=== PATIENT | female | born 1970 | race Caucasian/White ===

== ENCOUNTER → 2018-05-15 13:37 | Outpatient (CLI) | payer BC, SELFPAY ==
[2018-05-19 09:16] LABS: HPV Reflexed? NOT INDICATED
== END ==
PROVIDERS: Family Provider Internal Medicine; PCP Internal Medicine; Referring Provider Obstetrics & Gynecology; Visit Provider Obstetrics & Gynecology
DX: Z12.4 Encounter for screening for malignant neoplasm of cervix (principal)
CPT/HCPCS: 87624; 88175; G0145

== ENCOUNTER → 2019-06-23 10:35 | Outpatient (CLI) | payer OTHER, SELFPAY ==
--- NOTE | 2019-06-23 10:49 | BI_ITS ---
MAMMOGRAPHY - BILATERAL SCREENING REASON FOR EXAM: Female, 48 years old. Routine annual screening examination. PERTINENT HISTORY: Non-contributory. TECHNIQUE: Digital bilateral breast svetlana (3D mammographic acquisition) in the CC and MLO projections. 2-D mediolateral oblique (MLO) and craniocaudad (CC) views of both breasts were obtained. CAD: Full Field Digital Mammography with Computer Added Detection was performed. COMPARISON: None. Baseline examination. FINDINGS: Breast Composition: The breasts are heterogeneously dense, which may obscure small masses. There are no dominant masses or suspicious calcifications. Small benign appearing bilateral axillary nodes. No other significant abnormalities are identified. BI/SCREEN MAMM (CAD) W/SVETLANA BILAT IMPRESSION: Negative screening mammogram. Yearly followup mammogram recommended. (A) ASSESSMENT CATEGORY: BIRADS Category 2: Benign. A letter regarding these results will be sent to the patient by the facility within 30 days. Approximately 10% of breast cancers are not detected by mammography. A normal mammogram should not delay biopsy of a clinically suspicious abnormality. [id number] Electronically Signed: Efra Linares, at 12:06 EST , Service support ,
== END ==
PROVIDERS: Family Provider Internal Medicine; PCP Internal Medicine; Referring Provider Obstetrics & Gynecology; Visit Provider Obstetrics & Gynecology
DX: Z12.31 Encounter for screening mammogram for malignant neoplasm of breast (principal)
CPT/HCPCS: 77063; 77067

== ENCOUNTER → 2020-07-02 13:33 | Outpatient (CLI) | payer OTHER, SELFPAY ==
--- NOTE | 2020-07-02 13:35 | BI_ITS ---
MAMMOGRAPHY - BILATERAL SCREENING REASON FOR EXAM: Female, 49 years old. Routine annual screening examination. PERTINENT HISTORY: Non-contributory. TECHNIQUE: Digital bilateral breast svetlana (3D mammographic acquisition) in the CC and MLO projections. 2-D mediolateral oblique (MLO) and craniocaudad (CC) views of both breasts were obtained. CAD: Full Field Digital Mammography with Computer Added Detection was performed. COMPARISON: Comparison is made with prior study dated 06/23/2019. FINDINGS: Breast Composition: The breasts are heterogeneously dense, which may obscure small masses. There are no dominant masses or suspicious calcifications. Stable benign-appearing bilateral axillary lymph nodes. No other significant abnormalities are identified. There has been no significant change since the prior study. BI/SCRN MAMM (CAD)W/SVETLANA BILAT IMPRESSION: Stable bilateral screening mammogram. Yearly follow-up mammogram recommended. (A) ASSESSMENT CATEGORY: BIRADS Category 2: Benign. A letter regarding these results will be sent to the patient by the facility within 30 days. Approximately 10% of breast cancers are not detected by mammography. A normal mammogram should not delay biopsy of a clinically suspicious abnormality. [id number] Electronically Signed: Efra Linares MD at 14:19 EST , Service support ,
== END ==
PROVIDERS: PCP Internal Medicine; Referring Provider Obstetrics & Gynecology; Visit Provider Obstetrics & Gynecology
DX: Z12.31 Encounter for screening mammogram for malignant neoplasm of breast (principal)
CPT/HCPCS: 77063; 77067

== ENCOUNTER 2020-08-24 09:07 | Observation (INO) | payer OTHER, SELFPAY ==
[2020-08-24] VITALS (13 sets, daily range): BP systolic 124–145; BP diastolic 67–87; PULSE 70–82; RESP 12–16; TEMP 36.3–36.6; O2SAT 97–100; BMI 25.1; BMI 25.4; BMI 25.5
--- NOTE | 2020-08-24 09:17 | CT_ITS ---
STUDY: CTA HEAD AND NECK WITH CONTRAST REASON FOR EXAM: Female, 49 years old. Neuro deficit, acute, stroke suspected RADIATION DOSAGE (If Supplied By Facility): CTDIvol = ( 16.93 ) mGy, DLP = ( 616.57 ) mGycm TECHNIQUE: CT angiography was performed with a multi-detector CT scanner. Data acquisition was obtained from the skull base through the vertex following intravenous administration of IV 100mL Isovue-370. MIP images were reconstructed from the axial data set. Post-processing of the angiographic images was performed, with multiplanar reformation and 3D reconstruction. Individualized dose optimization techniques were used for this CT. COMPARISON: No relevant priors. FINDINGS: Normal bilateral petrous carotid arteries. Normal right cavernous carotid artery with a normal supraclinoid bifurcation. Normal left cavernous carotid artery with a normal supraclinoid bifurcation. Normal right A1 segments of the anterior cerebral artery. Normal left A1 segments of the anterior cerebral artery. Normal intact anterior communicating artery (ACOM). Normal bilateral A2 segments of the anterior cerebral arteries. Normal right M1 and M2 segments of the middle cerebral arteries, with a normal M1 bifurcation. Normal left M1 and M2 segments of the middle cerebral arteries, with a normal M1 bifurcation. Normal right posterior communicating artery (PCOM). Normal left posterior communicating artery (PCOM). Normal bilateral vertebral arteries. Normal basilar artery with a normal basilar bifurcation. The visualized bilateral superior cerebellar (SCA) arteries are normal. Normal bilateral P1, P2 and visualized P3 segments of the posterior cerebral arteries. There is no demonstrated aneurysm of the nikolski of Rodriguez. There is no demonstrated abnormality of the visualized brain. AORTIC ARCH: There is a bovine origin of the great vessels arising from the aortic arch with a common origin of the brachiocephalic and left common carotid artery. Normal origin of the left subclavian artery. RIGHT CAROTID ARTERIES: Normal right common carotid artery (CCA). Normal right common carotid bulb. Normal origin of the right internal carotid (ICA) artery without a hemodynamically significant stenosis. Normal visualized cervical portion of the right internal carotid artery. Normal origin of the right external carotid artery (ECA). LEFT CAROTID ARTERIES: Normal left common carotid artery (CCA). Normal left common carotid bulb. Normal origin of the left internal carotid (ICA) artery without a hemodynamically significant stenosis. Normal visualized cervical portion of the left internal carotid artery. Normal origin of the left external carotid artery (ECA). VERTEBRAL ARTERIES: Normal bilateral vertebral arteries. CT/STROKE CTA Head AND Neck W/Con IMPRESSION: Normal CTA Head and neck with contrast. N.B. : The above information has been verbally conveyed by Efra Linares MD to Azael Pratt on 08/24/2020 09:42:30 (ET). Electronically Signed: Efra Linares MD at 9:43 EDT , Service support ,
--- NOTE | 2020-08-24 09:17 | CT_ITS ---
STUDY: CT HEAD STROKE PROTOCOL W/O CONTRAST INJECTION REASON FOR EXAM: Female, 49 years old. Neuro deficit, acute, stroke suspected RADIATION DOSAGE (If Supplied By Facility): CTDIvol = ( 44.99 ) mGy, DLP = ( 748.3 ) mGycm TECHNIQUE: Transaxial CT imaging of the brain was performed without administration of intravenous contrast material. Individualized dose optimization techniques were used for this CT. COMPARISON: No relevant priors. FINDINGS: Normal soft tissue structures. Normal calvarium. Normal size ventricles and extra-axial spaces for the patient''s age. Normal white matter tracts of the cerebral hemispheres. Normal basal ganglia and thalami. Normal brainstem. Normal cerebellum. There is no intracranial hemorrhage. There are no findings of an acute ischemic infarction. Normal visualized paranasal sinuses. CT/STROKE Brain/Head without Cont IMPRESSION: Normal unenhanced CT scan of the brain. N.B. : The above information has been verbally conveyed by Efra Linares MD to Dr Terence MD, on 08/24/2020 09:34:47 (ET). Electronically Signed: Efra Linares MD at 9:35 EDT , Service support ,
--- NOTE | 2020-08-24 09:17 | EKG12_ITS ---
Test Reason : STROKE Blood Pressure : / mmHG Vent. Rate : 072 BPM Atrial Rate : 072 BPM P-R Int : 148 ms QRS Dur : 090 ms QT Int : 394 ms P-R-T Axes : 035 041 032 degrees QTc Int : 431 ms Normal sinus rhythm Normal ECG Confirmed by FABIOLA CONDE, RAFAL ([id number]), editor city KIERRA BACON ([id number]) on 08/26/2020 12:53:27 PM Referred By: Confirmed By:RAFAL HICKS MD
--- NOTE | 2020-08-24 09:17 | RAD_ITS ---
STUDY: X-RAY CHEST REASON FOR EXAM: Female, 49 years old. Neuro deficit, acute, stroke suspected TECHNIQUE: Single AP portable view of the chest. COMPARISON: None. FINDINGS: EKG electrodes are seen. The lungs are clear and expanded. There is no demonstrated pleural abnormality. Normal size heart. Normal mediastinum and norma. Normal visualized pulmonary arteries. Normal visualized aortic arch and descending thoracic aorta. Normal visualized thoracic spine. Normal visualized ribs, clavicles, and shoulders. There is no demonstrated abnormality of the visualized soft tissue structures of the upper abdomen. RAD/Chest 1 View IMPRESSION: Normal x-ray examination of the chest. Electronically Signed: Efra Linares MD at 10:19 EDT , Service support ,
--- NOTE | 2020-08-24 09:19 | ED.VIS.STROK ---
History of Present Illness Chief Complaint: Weakness Informant: Patient, Significant Other Onset: Yesterday Timing: Intermittent - Initially intermittent now continuous, Waxes and wanes Quality and Location: Right Leg Parasthesia, Right Arm Weakness, Right Leg Weakness Onset: Episode at 1300. Resolved recurred 1500. Resolved and reoccurred at 1700 Current Severity: Mild Maximum Severity: Moderate Worsened by: Nothing Relieved by: Nothing Associated Symptoms: Negative for: Headache, Nausea, Vomiting, Chest Pain Narrative: Patient is a 49-year-old woman who is a smoker of 1 pack/day. She states she is borderline diabetic. She does have elevated blood pressure apparently on no medicine. She had stuttering symptoms yesterday. She believes it became constant between 5 and 7 PM. She states she is having trouble combing her hair/putting her hair up. She is having trouble with her right leg. thinks she had problems with speech yesterday. He also states she was slow. Prior similar symptoms: No Recent Illness/Hospitalization: No - Past Medical History (1) High blood pressure Status: Chronic (2) History of prediabetes Status: Acute Past Medical History - Allergies and Home Meds Allergies/Adverse Reactions: Allergies Penicillins [PCN] Allergy (Verified 08/24/20 09:08) Hives Primary Care Physician: Cyndi Salcedo DO [Primary Care Provider] - Prior records reviewed: No Surgical History: noncontributory Lives: Spouse/ Significant Other Smoking Status: Heavy Smoker (>10/day) Alcohol: Rare Drugs: None Review of Systems General: Denies: Chills, Fever, Malaise, Subjective Eyes: Denies: Visual changes - bilaterally, Blurred Vision - bilaterally ENT: Denies: Rhinorrhea, Sore throat Cardiovascular: Denies: Chest pain, Palpitations Respiratory: Denies: Dyspnea, Cough, Dyspnea on exertion Gastrointestinal: Denies: Abdominal pain, Nausea, Vomiting, Diarrhea, Melena, Hematochezia Genitourinary: Denies: Dysuria, Hematuria, Frequency Musculoskeletal: Denies: Myalgias, Arthralgias, Neck pain, Back pain, Swelling, Extremity Pain, -, - Skin: Denies: Rash, Wounds Neurological: Reports: Weakness. Denies: Headache Psych: Denies: Depression, Anxiety Endocrine: Denies: Polyuria, Polydipsia STROKE Vital Signs/Narrative: Vital Signs Temp Pulse Resp BP Pulse Ox 08/24/20 09:08 98 F 82 16 130/82 H 100 Inital Vital Signs reviewed: Yes - NIHSS Initial 1a Level of Consciousness: 0 1b LOC Questions (Score 2 if aphasic/stupor): 0 1c LOC Commands (Only score 1st attempt): 0 2 Best Gaze (If aphasic, use reflexive mvmts.): 0 4 Facial Palsy: 0 5 Motor Arm Right (UN = amputation/fusion): 0 5 Motor Arm Left: 0 6 Motor Leg Right: 1 6 Motor Leg Left: 0 7 Limb ataxia (Only + if out of proportion): 0 8 Sensory (Aphasia/stupor=0 or 1, coma=2): 0 9 Best Language: 0 10 Dysarthria (mute, coma=2, intubated=UN): 0 11 Extinction and Inattention (only scored if +): 0 Total Score: 1 General: Well nourished, Well developed Head: Normocephalic, Atraumatic Eyes: Perrl, EOMI ENT: Moist mucous membranes, No rhinorrhea Neck: Supple, Nontender Cardiovascular: Regular rate, Regular rhythm, No murmurs Respiratory: No distress, CTA bilaterally, Chest nontender Abdomen: Soft, Nontender, Nondistended, Normal bowel sounds Back: Nontender, Normal Inspection Extremities: Nontender, No edema Skin: Normal color, No rash Neurological: Alert, Oriented x3, Cranial nerves II-XII grossly intact, Normal Sensation, Normal DTR. Negative for: Normal Strength, Normal Gait Psychological: Normal affect Diagnostic/Tx/Re-eval I received a call from the radiologist at 0934. I was informed the CAT scan is normal. Impressions Brain CT 08/24/20 09:17 IMPRESSION: Normal unenhanced CT scan of the brain. N.B. : The above information has been verbally conveyed by Efra Linares MD to Dr Terence MD, on 08/24/2020 09:34:47 (ET). Electronically Signed: Efra Linares MD at 9:35 EDT , Service support , ADDENDUM: 08/24/20 0942 IMPRESSION: Normal unenhanced CT scan of the brain. N.B. : The above information has been verbally conveyed by Efra Linares MD to Dr Terence MD, on 08/24/2020 09:34:47 (ET). Electronically Signed: Efra Linares MD at 9:35 EDT , Service support , Head/Neck CTA 08/24/20 09:17 IMPRESSION: Normal CTA Head and neck with contrast. N.B. : The above information has been verbally conveyed by Efra Linares MD to Azael Pratt on 08/24/2020 09:42:30 (ET). Electronically Signed: Efra Linares MD at 9:43 EDT , Service support , ADDENDUM: 08/24/20 0950 IMPRESSION: Normal CTA Head and neck with contrast. N.B. : The above information has been verbally conveyed by Efra Linares MD to Azael Pratt on 08/24/2020 09:42:30 (ET). Electronically Signed: Efra Linares MD at 9:43 EDT , Service support , 08/24/20 09:17 Chest 1 View [RAD] Stat STROKE Brain/Head without Cont [CT] Stat STROKE CTA Head AND Neck W/Con [CT] Stat Laboratory Results 08/24/20 08/24/20 08/24/20 09:32 09:35 09:35 WBC 8.0 RBC 3.87 L Hgb 13.3 Hct 40.1 MCV 103.6 H MCH 34.4 H MCHC 33.2 RDW Std Deviation 49.5 H RDW Coeff of Alana 13.0 Plt Count 275 MPV 9.7 Immature Gran % (Auto) 0.400 Neut % (Auto) 71.5 H Lymph % (Auto) 17.8 L Benson % (Auto) 8.5 Eos % (Auto) 0.9 Baso % (Auto) 0.9 Absolute Neuts (auto) 5.7 Absolute Lymphs (auto) 1.42 Nucleated RBC % 0 PT 14.9 INR 1.2 APTT 27.8 POC Glucose 128 H - Medical Decision Making Stroke Team Activated: Yes Reviewed Inclusion/Exclusion criteria: Yes IV Alteplase (t-PA) Administered: No - outside the 4 and half hour window No contraindications for IV Alteplase (t-PA) administration.: No - Outside window Alteplase (t-PA) risks, benefits, alternative discussed: No With stuttering symptoms that is now constant. Patient does have neurologic deficit on the right side. Stroke team was called. CT of the head without contrast and CTA of the head and neck was ordered. Spoke with the neurologist at [facility]. He recommended completing stroke work-up at [facility]. He recommended MRI and CT of the cervical spine because of symptoms being in the right lower extremity more so than upper. He states his score was a 0. Patient states she feels back to normal at this time. Concern is she had a TIA versus small stroke or possibly cervical neck/cord issue. The hospitalist was paged. Critical care time (excluding procedures): Including time spent: - Total time 18 minutes which included performing history, physical exam, discussion with neurologist at [facility], radiologist and hospitalist for admission ED Disposition - Plan for ED Patient: Disposition: Acute Care Hospital [facility] Diagnosis: Acute right-sided muscle weakness Referrals: Cyndi Salcedo DO [Primary Care Provider] -
[2020-08-24 09:43] LABS: Absolute Lymphocyte Count 1.42 X10^3/uL (0.83-4.51); Absolute Neutrophil Count 5.7 X10^3/uL (2.0-7.7); Basophil# 0.07 X10^3/uL; Basophil% 0.9 % (0-1); Eosinophil# 0.07 X10^3/uL; Eosinophils% 0.9 % (0-5); Hematocrit 40.1 % (37-47); Hemoglobin 13.3 g/dL (12.0-15.0); Lymphocyte # 1.42 X10^3/ul (4.0); Lymphocyte % 17.8 % (19-41); Mean Corp Hgb Conc 33.2 g/dL (32-36); Mean Corpuscular Hgb 34.4 pg (27.0-32.0); Mean Corpuscular Volume 103.6 fL (81-99); Mean Platelet Vol. 9.7 fl (6.2-12.0); Monocyte# 0.68 X10^3/uL; Monocyte% 8.5 % (0-10); NRBC Flagged by Analyzer 0 % (0-5); Neutrophil % 71.5 % (47-70); Platelet Count 275 K/mm3 (150-450); RBC Distribution Width SD 49.5 fl (35.1-43.9); Red Blood Count 3.87 M/mm3 (4.2-5.4)
[2020-08-24 09:54] LABS: International Normalized Ratio 1.2; Prothrombin Time (Protime)PT. 14.9 SECONDS (11.7-14.9)
[2020-08-24 09:55] LABS: Partial Thromboplast Time 27.8 Seconds (24.1-36.2)
[2020-08-24 09:56] LABS: Bedside Glucose 128 mg/dL (70-110)
[2020-08-24 10:00] LABS: Anion Gap 3 (5-15); BUN 8 mg/dL (7-18); BUN/Creat Ratio 15.3 RATIO (10-20); Calcium,Total 8.1 mg/dL (8.5-10.1); Chloride 104 mmol/L (98-107); Creatinine, Serum 0.52 mg/dL (0.55-1.02); EST Glomerular Filtration Rate 133 mL/min (>60); Est Glom Filt Rate - Afr Amer 161 mL/min (>60); Estimated Creatinine Clearance 110.64 ml/min; Glucose 117 mg/dL (74-106); Potassium 3.6 mmol/L (3.5-5.1); Sodium Level 134 mmol/L (136-145)
--- NOTE | 2020-08-24 11:11 | HP.PCM_ITS ---
Problem List (1) Weakness of right lower extremity Status: Acute (2) History of prediabetes Status: Chronic History of Present Illness Date of Admission: 08/24/20 Chief Complaint: Right lower extremity weakness. The patient is a 49 year old F with no significant past medical history apart from prediabetes presented to the emergency room because of right lower extremity weakness. Her symptoms started yesterday afternoon, started having weakness of the right lower extremity, was not able to walk normally and she has been dragging her right leg. For me, she denied any right upper extremity weakness or paresthesia. She denied any recent fall or mechanical trauma. She mentioned that she did have history of back pain and she had epidural injections years ago. Currently, she denies any low back pain. She denied numbness or tingling of her legs or arms. She denied blurred vision or slurred speech. In the emergency department, her vital signs were stable. Her NIH stroke scale was 1. [facility] teleneurology consulted and recommended MRI brain, not candidate for TPA. Routine blood work was unremarkable. EKG revealed normal sinus rhythm, normal CT interval, normal QRS, normal QTC, no acute ischemic changes. Troponin was negative. Chest x-ray showed no acute findings. CT brain showed no acute infarct or hemorrhage. CTA of the head and neck revealed no evidence of hemodynamically significant vascular disease or stenosis. She is being admitted for right lower extremity weakness for evaluation. 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 Dyspnea, Syncope Respiratory: Denies: Cough, Pleuritic Pain, Shortness of Breath, Sputum production, Wheezing Gastrointestinal: Denies: Abdominal Pain, Constipation, Diarrhea, Nausea, Vomiting Genitourinary: Denies: Dysuria, Frequency, Hematuria Musculoskeletal: Denies: Arm Pain, Back Pain, Foot Pain, Leg Pain Skin: Denies: Dryness, Rash Neurological: Reports: Focal weakness. Denies: Balance problems, Double vision, Change in Speech, Slurred speech, Confusion, Headaches, Numbness, Tingling Psychiatric: Denies: Anxiety, Depression Endocrine: Denies: Change in Body Habitus, Polydipsia, Polyuria VTE Information - Inpt Only VTE Present on Admission: No VTE Mechan Device Prophylaxis: None VTE Pharm Prophylaxis ordered?: No - Physical Exam Vitals/I&O's: Vital Signs Temp Pulse Resp BP Pulse Ox 97.7 F L 70 14 145/84 H 100 08/24/20 10:54 08/24/20 10:54 08/24/20 10:54 08/24/20 10:54 08/24/20 10:56 Oxygen Delivery Method Room Air Weight: 143 lb 11.862 oz Body Mass Index (BMI) 25.4 Finger Stick Blood Glucose 128 General: Alert, Oriented x3, Cooperative, No apparent distress HEENT: Atraumatic, PERRLA, EOMI, Normocephalic Oral: Moist Mucosa, No Gingival or Mucosal Lesions/ Ulcerations Neck: Supple, No JVD, Negative Carotid Bruits, Trachea Midline, Thyroid Normal Size and Texture Lungs: Clear to auscultation, Normal air movement, No rhonchi, No wheeze, No rales Cardiovascular: Regular rate, Regular Rhythm, Normal S1, Normal S2 Abdomen: Bowel Sounds Present, Soft, Non Tender, Non-Distended, No Hepato-splenomegaly Extremities: No clubbing, No cyanosis, No edema Skin: No rashes, No breakdown Lymphatic: No Cervical, Supraclavicular, or Inguinal Adenopathy Neurological: Cranial nerves II-XII grossly intact, Motor Exam 5/5 strength throughout, - - No arm drift. No obvious leg drift for 5 seconds. Psych/Mental Status: Normal Affect, Appropriate, Alert and oriented to time, place, person, mood and affect Laboratory Results 08/24/20 09:32: POC Glucose 128 H 08/24/20 09:35: WBC 8.0, RBC 3.87 L, Hgb 13.3, Hct 40.1, MCV 103.6 H, MCH 34.4 H , MCHC 33.2, RDW Std Deviation 49.5 H, RDW Coeff of Alana 13.0, Plt Count 275, MPV 9.7, Immature Gran % (Auto) 0.400, Neut % (Auto) 71.5 H, Lymph % (Auto) 17.8 L, Trego % (Auto) 8.5, Eos % (Auto) 0.9, Baso % (Auto) 0.9, Absolute Neuts (auto) 5.7, Absolute Lymphs (auto) 1.42, Nucleated RBC % 0 08/24/20 09:35: PT 14.9, INR 1.2, APTT 27.8 08/24/20 09:35: Sodium 134 L, Potassium 3.6, Chloride 104, Carbon Dioxide 27.0, Anion Gap 3 L, BUN 8, Creatinine 0.52 L, Estim Creat Clear Calc 110.64, Est GFR (MDRD) Af Amer 161, Est GFR (MDRD) Non-Af 133, BUN/Creatinine Ratio 15.3, Glucose 117 H, Calcium 8.1 L, Troponin I < 0.015 Clinical Impression(s) from Imaging Studies Brain CT 08/24/20 09:17 IMPRESSION: Normal unenhanced CT scan of the brain. N.B. : The above information has been verbally conveyed by Efra Linares MD to Dr Terence MD, on 08/24/2020 09:34:47 (ET). Electronically Signed: Efra Linares MD at 9:35 EDT , Service support , ADDENDUM: 08/24/2042 IMPRESSION: Normal unenhanced CT scan of the brain. N.B. : The above information has been verbally conveyed by Efra Linares MD to Dr Terence MD, on 08/24/2020 09:34:47 (ET). Electronically Signed: Efra Linares MD at 9:35 EDT , Service support , Chest X-Ray 08/24/20 09:17 IMPRESSION: Normal x-ray examination of the chest. Electronically Signed: Efra Linares MD at 10:19 EDT , Service support , Head/Neck CTA 08/24/20 09:17 IMPRESSION: Normal CTA Head and neck with contrast. N.B. : The above information has been verbally conveyed by Efra Linares MD to [facility] on 08/24/2020 09:42:30 (ET). Electronically Signed: Efra Linares MD at 9:43 EDT , Service support , ADDENDUM: 08/24/20 0950 IMPRESSION: Normal CTA Head and neck with contrast. N.B. : The above information has been verbally conveyed by Efra Linares MD to [facility] on 08/24/2020 09:42:30 (ET). Electronically Signed: Efra Linares MD at 9:43 EDT , Service support , Current Medications Sodium Chloride () 250 mls @ 15 mls/hr IV .[id number] PRN PRN Reason: Saline Flush Sodium Chloride () 250 mls @ 15 mls/hr IV .[id number] PRN PRN Reason: Additional IVPB Infusion Labetalol HCl (Labetalol (Prefilled) 20 Mg/4 Ml) 20 mg IV X1 PRN PRN Reason: BLOOD PRESSURE Sodium Chloride (0.9% Saline Lock 10 Ml Syringe) 10 - 40 ml IV UD PRN PRN Reason: SALINE FLUSH Assessment/Plan All Active Problems Weakness of right lower extremity (Acute) This is a 49 years old female patient presented to the emergency room because of right lower extremity weakness and she is being admitted for evaluation. #1 right lower extremity weakness: Unclear etiology, could be muscle weakness. Patient mentioned to the ED physician that she has right arm weakness as well. To me, she denied any right arm weakness or back pain. Her power is 5 x 5 of all limbs, no leg drift on both sides. CT scan brain showed no acute findings. CTA of the head and neck was unremarkable. EKG was normal. Vital signs were stable. Routine blood work was unremarkable. Plan: Admit to PCU for observation, cardiac monitoring, NIH stroke scale, start aspirin and statins, MRI brain, MRI lumbar spine, gentle IV fluids for hydration, Tylenol as needed, Zofran as needed, PT OT evaluation and treatment. #2 prediabetes: Blood sugar stable. She is not on any treatment. Plan to monitor. #3 tobacco abuse: Nicotine patch if desired. #4 DVT prophylaxis: Low risk patient, no prophylaxis indicated, ambulate. This note was generated with [employer]Other[employer] dictation software. It may contain incorrect words, spelling, and punctuation that were not noted in checking the note before signing. OBSV E&M: [id number] Initial observation care L2
--- NOTE | 2020-08-24 11:26 | MRI_ITS ---
STUDY: MRI BRAIN WITHOUT CONTRAST REASON FOR EXAM: Female, 49 years old. Right lower extremity weakness TECHNIQUE: Standardized multiplanar fat and water weighted pulse sequences were obtained. COMPARISON: CT FINDINGS: Normal size of the ventricles and extra-axial spaces for the patient''s age. Normal white matter tracts of the supratentorial brain. There is no evidence for recent intracranial ischemia or other cause of cytotoxic edema on diffusion weighted imaging (DWI). Normal T2* images of the brain without demonstrated susceptibility artifact. There is no demonstrated hemosiderin stain. Normal bilateral basal ganglia. Normal thalami. There is no extra-axial fluid accumulation. Normal flow voids within the major intracranial circulation suggesting patency by spin echo criteria. Normal sella turcica, pituitary gland, infundibular stalk, optic chiasm and hypothalamus. Normal tectal plate and pineal gland. Normal midbrain, flex and medulla. Normal cerebellum. Normal basal cisterns. Normal bilateral temporal bones. Normal bilateral internal auditory canals. No demonstrated orbital abnormality, within the constraints of a routine brain study. Normal visualized paranasal sinuses. Normal calvarium and skull base. Normal visualized soft tissue structures. Normal visualized upper cervical spine. MRI/Brain without Contrast IMPRESSION: Normal unenhanced MRI of the brain. Electronically Signed: Francisco Javier Ortiz MD at 21:58 EDT , Service support ,
--- NOTE | 2020-08-24 11:26 | MRI_ITS ---
STUDY: MRI LUMBAR SPINE WITHOUT CONTRAST REASON FOR EXAM: Female, 49 years old. Right lower extremity weakness TECHNIQUE: Standardized fat and water weighted pulse sequences were obtained in the sagittal and axial planes. COMPARISON: None FINDINGS: T12-L1: Left paracentral disc protrusion, series 5 image 28/30. Mild facet spurring but no canal stenosis. Neural foramina are patent. Normal lumbar lordosis. There is a dextroscoliosis of the lumbar spine. Normal conus medullaris that terminates at the T12 level. L1-2: Normal endplates. Normal disc height, hydration and morphology. Mild spurring of the bilateral facet joints. Normal central canal and bilateral lateral recesses. Normal bilateral intervertebral neural foramina. L2-3: Normal endplates. Normal disc height, hydration and morphology. Mild spurring of the bilateral facet joints. Normal central canal and bilateral lateral recesses. Normal bilateral intervertebral neural foramina. L3-4: Disc bulge. Mild spurring of the bilateral facet joints. Normal central canal and bilateral lateral recesses. Normal bilateral intervertebral neural foramina. L4-5: Disc bulge. Mild spurring of the bilateral facet joints. Normal central canal and bilateral lateral recesses. Normal bilateral intervertebral neural foramina. L5-S1: Disc bulge with central disc protrusion, series 5 image 3/30. Facet spurring. No canal stenosis. Neural foramina patent. Normal visualized sacral ala. Normal visualized paraspinous soft tissue structures. There is diminished T2 signal mass of the uterus consistent with fibroid. 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 Electronically Signed: Francisco Javier Ortiz MD at 22:06 EDT , Service support ,
[2020-08-24] MEDS: 0.9% Normal Saline 1,000 ML 75 ML IV (11:45)
[2020-08-24 12:37] LABS: CPK Total, Creatine Kinase 24 U/L (26-192)
--- NOTE | 2020-08-24 15:20 | CASEMGMT ---
Therapy told SW that patient would be a great Inpatient Rehab candidate. SW met with patient, introduced self and role at [facility]. SW spoke with her about Acute Rehab Units. SW offered to give her a list of options, but she declined as she would only want to be in [place]. SW answered her questions. She is going to talk with her about it. SW told her SW can check back in with her tomorrow. SW did leave a pamphlet with her. Raissa GRAVES MSW
[2020-08-24] MEDS: Atorvastatin Calcium 40 MG Tablet PO (20:35)
[2020-08-24] MEDS: Zolpidem Tartrate 5 MG Tablet PO (20:35)
[2020-08-25 00:30] VITALS: BP 133/80; PULSE 74; RESP 18; TEMP 36.4; O2SAT 97
[2020-08-25 03:01] VITALS: PULSE 71
[2020-08-25 04:30] VITALS: BP 119/77; PULSE 75; RESP 18; TEMP 36.8; O2SAT 98
[2020-08-25 07:00] VITALS: PULSE 87
[2020-08-25 07:31] VITALS: O2SAT 97
--- NOTE | 2020-08-25 08:16 | DCINST_ITS ---
- Discharge Diagnoses Current Active Problems: Current Active and Chronic Problems Weakness of right lower extremity (Acute) History of prediabetes (Chronic) You will use the following diet at home:: Regular Your food should be the consistency of: Regular Discharge Activity: Return to Normal Activity Weight Bearing Status: Weight bearing as tolerated Call your doctor if you observe: Fever of 101 or Higher, Shortness of breath, Dizziness, Fainting spells, Chest pain, Increased palpitations (irregular heartbeat), Uncontrolled pain Allergies/Adverse Reactions: Allergies Penicillins [PCN] Allergy (Verified 08/24/20 09:08) Hives Medications to take at Discharge NK 08/24/20 Primary Care Physician: Cyndi Salcedo DO [Primary Care Provider] - Please follow up with your Primary Care Physician in: 1 week. Test Results: Test results from this visit will be discussed in further detail at your follow- up appointment, if applicable. Please Follow Up With: Dov Brown MD When: 2-3 weeks if no improvment.
[2020-08-25 08:47] VITALS: BP 119/77; PULSE 75; RESP 18; TEMP 36.8; O2SAT 98
--- NOTE | 2020-08-25 09:41 | PHA.DC.MR ---
Pharmacy Service has performed discharge medication reconciliation for this patient. The patient's discharge medication list was reviewed for discrepancies and discrepancies were resolved. Home Medications NK 08/24/20
--- NOTE | 2020-08-25 10:10 | CASEMGMT ---
SW did not complete a PHQ 9 with patient as per physician she did not have a Stroke or TIA. Raissa GRAVES MSW
--- NOTE | 2020-08-25 10:10 | CASEMGMT ---
Patient did much better with therapy today and her plan is now to go home. Raissa GRAVES MSW
--- NOTE | 2020-08-25 10:14 | CASEMGMT ---
Per therapy, pt would benefit from HHC or OP therapy at discharge. Per pt, she is not homebound and would like set up with [facility] OP therapy as she has been there before. Pt would also like a WW and after provided verbal list of local in-network DME companies, pt states no preference and [place] [facility] [place] 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 [place]. Pt provided copies of [facility] script and OP therapy script at this time. Pt voices no further questions/concerns/needs. Nehemias CAVAZOS updated on all, voices understanding. Pt awaiting transport to car. Sherita CAVAZOS CM
--- NOTE | 2020-08-25 10:37 | PCM.DC.SUM ---
Discharge Date and Diagnosis - Problem List Patient Problems: Active and Suspected Problems Weakness of right lower extremity (Acute) Date of Admission: 08/24/20 Date of Discharge: 08/25/20 - Primary Discharge Diagnosis Acute Problems: Active Problems Weakness of right lower extremity, unclear etiology (Acute) - Secondary Discharge Diagnosis Chronic Problems: Chronic Problems History of prediabetes (Chronic) Hospital Course and Treatment Imaging Results: Clinical Impression(s) from Imaging Studies Brain CT 08/24/20 09:17 IMPRESSION: Normal unenhanced CT scan of the brain. N.B. : The above information has been verbally conveyed by Efra Linares MD to Dr Terence MD, on 08/24/2020 09:34:47 (ET). Electronically Signed: Efra Linares MD at 9:35 EDT , Service support , ADDENDUM: 08/24/2042 IMPRESSION: Normal unenhanced CT scan of the brain. N.B. : The above information has been verbally conveyed by Efra Linares MD to Dr Terence MD, on 08/24/2020 09:34:47 (ET). Electronically Signed: Efra Linares MD at 9:35 EDT , Service support , Chest X-Ray 08/24/20 09:17 IMPRESSION: Normal x-ray examination of the chest. Electronically Signed: Efra Linares MD at 10:19 EDT , Service support , Head/Neck CTA 08/24/20 09:17 IMPRESSION: Normal CTA Head and neck with contrast. N.B. : The above information has been verbally conveyed by Efra Linares MD to Azael Pratt on 08/24/2020 09:42:30 (ET). Electronically Signed: Efra Linares MD at 9:43 EDT , Service support , ADDENDUM: 08/24/20 0950 IMPRESSION: Normal CTA Head and neck with contrast. N.B. : The above information has been verbally conveyed by Efra Linares MD to Azael Prtat on 08/24/2020 09:42:30 (ET). Electronically Signed: Efra Linares MD at 9:43 EDT , Service support , Brain MRI 08/24/20 11:26 IMPRESSION: Normal unenhanced MRI of the brain. Electronically Signed: Francisco Javier Ortiz MD at 21:58 EDT , Service support , Lumbar Spine MRI 08/24/20 11:26 IMPRESSION: Degenerative change with disc herniations at T12-L1 and L5-S1. Electronically Signed: Francisco Javier Ortiz MD at 22:06 EDT , Service support , Operations: None Procedures: None Summary of Care Provided: Patient seen and examined on the day of discharge and appeared to be stable to be discharged home. Weakness of the right leg improved. Patient was able to ambulate with minimal difficulty. Her vital signs were stable. The patient is a 49 year old F presented to the emergency room because of weakness of the right lower extremity and she was admitted for evaluation. It was not clear if her weakness is due to muscle weakness or neurological deficit. Her power on examination was 5 x 5 and she had no leg drift on both sides. She had no other focal deficits. She had no risk factors for stroke. There was no evidence of clinical findings suggestive of myopathy. Her routine blood work was unremarkable. CPK was normal. Initial concern that patient may have a stroke. In the ED, stroke alert was called, patient had brain CT as well as CTA of the neck and they were unremarkable without evidence of acute stroke and without evidence of significant vascular disease. She was admitted to PCU for observation. She had MRI brain done that showed no evidence of acute infarct or hemorrhage, no other acute findings such as multiple sclerosis. Patient mentioned that she had epidural anesthesia for her deliveries of her babies years ago and she complained of intermittent low back pain. MRI lumbar spine done and showed degenerative changes with disc herniation at T12 T1 and L5-S1, there was no evidence of nerve impingement or compression. On the day of discharge, patient mentioned that her weakness of the right leg is improving and she was able to stand and walk with minimal difficulty. She requested a walker to use at home. Patient was discharged home in a stable medical condition, prescription was given for a walker, recommended physical therapy as outpatient and recommended that if her symptoms do not improve or persistent, she should go to see neurology as outpatient, recommended follow-up with PCP in 1 week. Patient Problems: Active and Suspected Problems Weakness of right lower extremity (Acute) - Physical Exam Vitals/I&O's: Vital Signs Temp Pulse Resp BP Pulse Ox 98.2 F 75 18 119/77 98 08/25/20 08:47 08/25/20 08:47 08/25/20 08:47 08/25/20 08:47 08/25/20 08:47 Oxygen Delivery Method Room Air Weight: 143 lb 11.862 oz Body Mass Index (BMI) 25.4 Finger Stick Blood Glucose 128 Intake and Output for Last 24 Hours 08/23/20 08/24/20 08/25/20 23:59 23:59 23:59 Intake Total 1208.75 / 1448.75 240 / 240 Balance 1208.75 / 1448.75 240 / 240 General: Alert, Oriented x3, Cooperative, No apparent distress HEENT: Atraumatic, PERRLA, EOMI, Normocephalic Oral: Moist Mucosa, No Gingival or Mucosal Lesions/ Ulcerations Neck: Supple, No JVD, Negative Carotid Bruits, Trachea Midline, Thyroid Normal Size and Texture Lungs: Clear to auscultation, Normal air movement, No rhonchi, No wheeze, No rales Cardiovascular: Regular rate, Regular Rhythm, Normal S1, Normal S2, PMI Normal Abdomen: Bowel Sounds Present, Soft, Non Tender, Non-Distended, No Hepato-splenomegaly Extremities: No clubbing, No cyanosis, No edema Skin: No rashes, No breakdown Lymphatic: No Cervical, Supraclavicular, or Inguinal Adenopathy Neurological: Cranial nerves II-XII grossly intact, Motor Exam 5/5 strength throughout Psych/Mental Status: Normal Affect, Appropriate Laboratory Results 08/24/20 09:35: Total Creatine Kinase 24 L Discharge Activity: Return to Normal Activity Weight Bearing Status: Weight bearing as tolerated Call your doctor if you observe: Fever of 101 or Higher, Shortness of breath, Dizziness, Fainting spells, Chest pain, Increased palpitations (irregular heartbeat), Uncontrolled pain Home Medications: Medications to take at Discharge NK 08/24/20 Primary Care Physician: Cyndi Salcedo DO [Primary Care Provider] - Please follow up with your Primary Care Physician in: 1 week. Please Follow Up With: Dov Brown MD When: 2-3 weeks if no improvment. Disposition: Home Minutes spent on discharge:: 27 Patient Condition:: Stable Medical Necessity - Tobacco Use Smoking Status: Current every day smoker Tobacco Use: Cigarettes Meaningful Use Info Meaningful Use Diagnoses (Choose all that apply): None applicable OBSV E&M: 17722 Observation care discharge
== END 2020-08-25 08:16 | disposition home or self-care (01) ==
LOC: ED 10:00 → PCU 11:31
PROVIDERS: Admitting Provider Hospitalist; Emergency Provider Emergency Medicine; PCP Internal Medicine; Visit Provider Hospitalist
DX: R53.1 Weakness (principal); E11.9 Type 2 diabetes mellitus without complications; F17.210 Nicotine dependence, cigarettes, uncomplicated; I10 Essential (primary) hypertension; R29.701 NIHSS score 1
CPT/HCPCS: 70450; 70496; 70498; 70551; 71045; 72148; 80048; 82550; 82962; 84484; 85025; 85610; 85730; 93005; 96360; 96361; 97110; 97162; 97166; 97535; 99218; 99285; J7030; Q9967; G0378

== ENCOUNTER → 2020-10-05 14:43 | Outpatient (CLI) | payer OTHER, SELFPAY ==
[2020-08-24 10:40] VITALS: BMI 25.4
[2020-10-05 15:03] LABS: Hematocrit 42.2 % (37-47); Hemoglobin 13.9 g/dL (12.0-15.0); Mean Corp Hgb Conc 32.9 g/dL (32-36); Mean Corpuscular Hgb 33.1 pg (27.0-32.0); Mean Corpuscular Volume 100.5 fL (81-99); Mean Platelet Vol. 10.1 fl (6.2-12.0); Platelet Count 381 K/mm3 (150-450); RBC Distribution Width CV 13.1 % (11.6-14.6); RBC Distribution Width SD 48.7 fl (35.1-43.9); White Blood Count 9.3 K/mm3 (4.4-11.0)
[2020-10-05 15:15] LABS: ALB/GLOB Ratio 1.4 RATIO (0.9-2.4); AST(SGOT) 15 U/L (15-37); Alanine Aminotransfer ALT/SGPT 32 U/L (13-56); Albumin, Serum 4.3 g/dL (3.2-5.0); Alkaline Phosphatase 102 U/L (45-117); Amylase 58 U/L (25-115); Anion Gap 6 (5-15); BUN 8 mg/dL (7-18); BUN/Creat Ratio 11.5 RATIO (10-20); Calcium,Total 9.5 mg/dL (8.5-10.1); Chloride 104 mmol/L (98-107); EST Glomerular Filtration Rate 96 mL/min (>60); Est Glom Filt Rate - Afr Amer 116 mL/min (>60); Globulin 3.1 g/dL (2.2-4.2); Glucose 105 mg/dL (74-106); Lipase 123 U/L (73-393); Potassium 4.7 mmol/L (3.5-5.1); Protein, Total 7.4 g/dL (6.4-8.2); Sodium Level 139 mmol/L (136-145)
--- NOTE | 2020-10-05 17:10 | CT_ITS ---
STUDY: CT ABDOMEN AND PELVIS WITH CONTRAST REASON FOR EXAM: Female, 50 years old. ABD PAIN,ACUTE,NONLOCALIZED RADIATION DOSAGE (If Supplied By Facility): CTDIvol = ( 14.07 ) mGy, DLP = ( 389.61 ) mGycm TECHNIQUE: Transaxial images were obtained from the dome of the diaphragm to the symphysis pubis without oral contrast. IV 100mL Isovue-300 was administered. Sagittal and coronal images were reconstructed. Individualized dose optimization techniques were used for this CT. COMPARISON: None. FINDINGS: The visualized lung bases are unremarkable. The visualized portions of the heart are within normal limits. There is elongation of the right lobe of the liver consistent with normal variant. No mass or bile duct dilatation.. Normal gallbladder and extrahepatic biliary system. Normal spleen. Normal pancreas. Normal bilateral adrenal glands. Normal right kidney. Normal left kidney. Normal visualized stomach. No evidence for small bowel obstruction however there do appear to be a few loops of small bowel demonstrating mild thickening of the shah consistent with nonspecific enteritis There is thickening of the shah of the terminal ileum and narrowing the lumen consistent with nonspecific ileitis possibly due to Crohn''s disease.. Normal colon. No evidence for acute appendicitis. Normal abdominal aorta. Normal inferior vena cava. Normal retroperitoneum. Normal urinary bladder. Focal lobular area of enhancement within the uterus possibly representing a fibroid Small left ovarian or paraovarian cyst measuring 2.1 x 1.7 cm Normal abdominal wall. Normal osseous structures. CT/Abdomen/Pelvis WITH Contrast IMPRESSION: Findings which may be consistent with nonspecific enteritis. No evidence for small bowel obstruction. Small left ovarian or paraovarian cyst. Question uterine fibroid. This may be further assessed with pelvic sonogram if clinically warranted Electronically Signed: Naveed Bosch MD at 17:38 EDT , Service support ,
== END ==
PROVIDERS: PCP Internal Medicine; Referring Provider Nurse Practitioner; Visit Provider Nurse Practitioner
DX: R10.9 Unspecified abdominal pain (principal)
CPT/HCPCS: 74177; 80053; 82150; 83690; 85027; Q9967

== ENCOUNTER 2020-11-09 11:30 | Outpatient (RCR) | payer OTHER, SELFPAY ==
[2020-08-24 10:40] VITALS: BMI 25.4
--- NOTE | 2020-09-08 13:41 | HP.PTEVAL ---
Patient's Visit Information ANICETO FINE is a 49 year old F referred to Physical Therapy by Dr. Rory Banks MD with a diagnosis of DISC HERNIATIONS T12 - L1, L5-S1. Date of Evaluation: 09/08/20 Physical Therapist: Gena Mahoney PT, Cert MDT - Visit Plan Frequency: 2-3x /Week Duration: 4-6 Weeks Plan: *NO OVER-HEAD PRESS OR TWISTING. NO SUPINE LEG PRESS. POSTURE CORRECTION/STRENGTHENING, INSTRUCTION IN APPROPRIATE BODY MECHANICS AND ACTIVITY MODIFICATIONS. DLS WITH A NEUTRAL SPINE TOLERATED. FAITH UE AND LE ROM, STRETCHING AND STRENGTHENING. HEP INSTRUCTION. 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 HOUSE CLEANING - ABOUT 10 HOURS A WEEK. PATIENT REPORTS SHE IS NOT OFF WORKING FROM THE SCHOOL DUE TO HER BACK. Disability: NO. Present symptoms: FAITH NECK, UPPER BACK AND LOW BACK PAIN. FAITH RIB AREA PAIN. RIGHT LEG - RESTLESS LEG SX'S. LEFT KNEE PAIN. FAITH FOOT NUMBNESS - INTERMITTENT. FAITH UE PAIN, NUMBNESS AND TINGLING RUE > LEFT. RIGHT EAR SENSATIVITY, RIGHT BACK TENDERNESS. RASH IN HOSPITAL ON FACE, BELLY AND CHEST. Present since: AUGUST 24 2020. Pain Scale: WORST 5/10, LEAST 3/10. Currently: 3/10. Commenced as a result of: NO APPARENT REASON. Symptoms at onset: RIGHT LE WEAKNESS. PATIENT REPORTS R LE WEAKNESS AND LOSS OF BALANCE. NEXT MORNING RUE WEAKNESS. THEN WENT TO ED. Worse: SITTING, SOMETIMES STANDING, BENDING. Better: SHIFTING WEIGHT, SITTING ON PILLOW, PUTTING FEET UP, CHANGE OF POSITION. Disturbed sleep: NO. Previous history/Previous treatment: NO SPINE SURGERY, NO PRIOR CANDIDO'S. PATIENT REPORTS SHE HAS HAD PHYSICAL THERPAY FOR HER BACK ABOUT 15 YEARS. CHIROPRACTIC ABOUT 7 YEARS. Treatment this episode: ED 08/25/20. ADMIT TO HOSP FOR ONE DAY. DX'D WITH DISC HERNIATIONS AND REFERRED TO NEUROLOGIST - PENDING OCT 25 2020. VIRTUAL VISIT WITH SHARLA MCINTOSH AFTER RELEASED FROM THE HOSPITAL. JOSE ANTONIO'T PENDING WITH DR. WALLACE SEPTEMBER 17 2020. Coughing/sneezing/straining: NEGATIVE. Gait: PATIENT REPORTS THAT WHEN SHE WALKS SHE HAS WEAKNESS IN HER RIGHT LEG. STATES SHE IS SLOWER WALKING NOW AND SHE CAN'T GO UP AND DOWN STEPS LIKE SHE USE TO A FEW WEEKS AGO. SHE REPORTS HER LEFT KNEE (BAKERS CYST) WAS A PROBLEM BEFORE THIS HAPPENED BUT NOW HER RIGHT LEG IS ACTUALLY WEAKER THAN THE RIGHT. Difficulty initiating urinatin: NO. Accidents: NO. Unexplained weight loss: NO. Imaging: SEE [facility] EMR. PMH: DIVERTICULITIS - RECENTLY ON TWO PRESCRIPTIONS. SEE BELOW. Recent major surgery: UNREMARKABLE. PLOF (Prior Level of Function): UNLIMITED. OTHER: PATIENT REPORTS THAT TESTING AT THE HOSPITAL DID NOT SHOW A STROKE. - Objective Sitting/Standing Posture: POOR. ROUNDED SHLDS. FORWARD HEAD. NORMAL LORDOSIS. NO LATERAL SHIFT. MILD INCREASED KYPHOSIS. Active Correction of posture: BETTER. Other Observations: INDEP GAIT INTO PT WITHOUT ANY ASSISTIVE DEVICES OR LOB BUT LIMP ON RIGHT LE AND DECREASED CADANCE. PATIENT WITH SPASTIC TYPE MOTION IN RIGHT LE DURING GAIT. Motor deficit: FAITH UE'S AND LE'S GROSSLY 5/5 WITH MMT'ING EXCEPT FAITH SHLD'S 4/5, RIGHT HIP/KNEE 4-/5 AND L HIP 4/5. FAITH CRM TECHNICAL LEAD STRENGTH 60 LBS. PATIENT IS R HAND DOMINANT. Sensory deficit: FAITH LE LIGHT TOUCH SENSATION APPEARS INTACT AND SYMMETRICAL WITH TESTING TODAY BUT PATIENT REPORTS TICKLE FEELS DIFFERENT ON RIGHT UE. ROM deficit: FAITH UE'S AND LE'S WFL. Reflexes: FAITH LE DTR'S 2/3 BUT UNABLE TO ELICIT FAITH UE'S. Dural Signs: NEGATIVE SLUMP TEST FAITH LE'S. Lumbar mvmt loss: flex - MOD. ext - MOD. R SG - MOD. L SG - MOD. PATIENT DENIES INCREASED BACK PAIN WITH LUMBAR ROM TESTING BUT REPORTS IT FEELS REALLY TIGHT. PATIENT REPORTS IT WAS TIGHT BEFORE THIS EPISODE TOO. THORACIC MVMT LOSS: MOD FAITH T/S ROTATION. PATIENT DENIES PAIN BUT REPORTS TIGHTNESS AGAIN. Core strength: POOR. Palpation: NO ACUTE THORACIC OR LUMBAR TENDERNESS. CERVICAL MVMT LOSS IS MODERATE ALL PLANES EXCEPT FLEX AND PROTRUSION IS FULL. PATIENT REPORTS CHRONIC NECK PAIN AND TIGHTNESS. OTHER: PATIENT IS ABLE TO SINGLE LEG STANCE ON EA LE X >15 SEC EA. SHE IS ALSO ABLE TO MAINTAIN HER BALANCE AND DO A SLS HEEL RAISE ON EA LE BUT IT IS MORE DIFFICULT ON THE R LE. - Goals Goal 1:: DECREASE C/O SPINE PAIN, UE AND LE SX'S. Goal Time Frame: 4-6 Weeks Goal 2:: IMPROVE LIFTING, WALKING, SITTING, STANDING, TRAVEL, WORK/HOMEMAKING FUNCTION. Goal Time Frame: 4-6 Weeks Goal 3:: INSTRUCT IN PROPHYLAXIS Goal Time Frame: 4-6 Weeks - Anticipated Interventions Patient/Client Instruction: Educate patient on: Condition, Plan of Care, Risk Factors, Benefits of Fitness Program For the Purpose of:: To improve self management Therapeutic Exercise to Include: Strength training, Body mechanics, Postural training, Gait and locomotor training, Neuromotor development, In an aquatic setting, Dynamic Lumbar Stabilization, Scapular Strength/Stabilization Comment: CONSIDER AQUATIC THERAPY For the Purpose of:: To decrease pain, To improve muscle performance and motor function, To increase tolerance to activity/condition/position, To improve ability of physical actions for home/community/work/leisure, To improve gait and locomotor functions Thank you for the opportunity to evaluate your patient. For Medicare and Medicare HMO plans, please review the plan of care and approve it. It will need to be FAXED BACK to us at [phone] for Medicare purposes. For Medicare only, by signing this I certify the plan of care. Please let me know if there are questions or concerns regarding this plan of care. Physician Signature: Date:
--- NOTE | 2020-10-07 11:12 | HP.PTREVAL ---
Dr. Cyndi Salcedo, DO, It has been my pleasure to treat ANICETO FINE over the last 14 visits for DISC HERNIATIONS T12 - L1, L5-S1. Please see the progress note below for an update on the physical therapy plan of care! Subjective: I FEEL GOOD BUT I KNOW I STILL HAVE SOME THINGS TO STRENGTHEN BUT I AM GETTING BETTER. PATIENT REPORTS SHE ISN'T ABLE TO DO THE STRENUOUS OR CONTINUOUS STUFF AROUND THE HOUSE THAT SHE COULD BEFORE SHE WAS IN THE HOSPITAL. STILL FEARFUL OF HURTING HERSELF IF SHE TRIES TO DO THINGS LIKE SHE USE TO - LIKE HELPING MOVE HEAVY THINGS. PATIENT REPORTS SHE WOULD LIKE TO CONTINUE PT IF POSSIBLE. I CAN'T RUN OR LIFT THINGS LIKE I USE TO BUT I CAN LIVE DAILY LIFE BETTER. Objective/Function: PATIENT WAS SEEN TODAY FOR RE-ASSESSMENT OF PROGRESS TOWARD THE SET PT GOALS AND THE NEED FOR FURTHER PHYSICAL THERAPY VS READINESS FOR DISCHARGE. PATIENT IS A GOOD CANDIDATE TO CONTINUE PT BASED ON PROGRESS MADE AND ROOM FOR FURTHER IMPROVEMENT. UPON EXAM TODAY: INDEP GAIT INTO PT WITHOUT ANY ASSISTIVE DEVICES OR LOB AND NO GROSS DEVIATIONS NOTED. PATIENT NO LONGER CONSISTANTLY DEMO'S SPASTIC TYPE MOTION IN RIGHT LE DURING GAIT AND WHEN IT DOES OCCUR IT IS MUCH MORE WAYNE. Motor deficit: FAITH UE'S AND LE'S GROSSLY 5/5 WITH MMT'ING. Sensory deficit: FAITH LE LIGHT TOUCH SENSATION APPEARS INTACT AND SYMMETRICAL WITH TESTING TODAY. ROM deficit: FAITH UE'S AND LE'S WFL. Reflexes: FAITH UE AND LE DTR'S 2/3. Dural Signs: NEGATIVE SLUMP TEST FAITH LE'S. Lumbar mvmt loss: flex - MIN. ext - MOD. R SG - MOD. L SG - MOD. PATIENT DENIES INCREASED BACK PAIN WITH LUMBAR ROM TESTING. THORACIC MVMT LOSS: MOD FAITH T/S ROTATION. PATIENT DENIES PAIN BUT REPORTS TIGHTNESS . Core strength: FAIR. Palpation: NO ACUTE THORACIC OR LUMBAR TENDERNESS. CERVICAL MVMT LOSS IS MODERATE ALL PLANES EXCEPT FLEX AND PROTRUSION IS FULL. PATIENT REPORTS CHRONIC NECK PAIN AND TIGHTNESS. OTHER: PATIENT IS ABLE TO SINGLE LEG STANCE ON EA LE X >20 SEC EA. SHE IS ALSO ABLE TO MAINTAIN HER BALANCE AND DO A SLS HEEL RAISE ON EA LE. Plan Plan: CONTINUE PT: *NO OVER-HEAD PRESS OR TWISTING. NO SUPINE LEG PRESS. POSTURE CORRECTION/STRENGTHENING, INSTRUCTION IN APPROPRIATE BODY MECHANICS AND ACTIVITY MODIFICATIONS. DLS WITH A NEUTRAL SPINE TOLERATED. FAITH UE AND LE ROM, STRETCHING AND STRENGTHENING. HEP INSTRUCTION. Goals Goal 1:: DECREASE C/O SPINE PAIN, UE AND LE SX'S. Goal Time Frame: 4-6 Weeks Goal Progress: Progressing Goal 2:: IMPROVE LIFTING, WALKING, SITTING, STANDING, TRAVEL, WORK/HOMEMAKING FUNCTION. Goal Time Frame: 4-6 Weeks Goal Progress: Progressing Goal 3:: INSTRUCT IN PROPHYLAXIS Goal Time Frame: 4-6 Weeks Goal Progress: Progressing Anticipated Interventions Patient/Client Instruction: Educate patient on: Condition, Plan of Care, Risk Factors, Benefits of Fitness Program For the Purpose of:: To improve self management Therapeutic Exercise to Include: Strength training, Body mechanics, Postural training, Gait and locomotor training, Neuromotor development, In an aquatic setting, Dynamic Lumbar Stabilization, Scapular Strength/Stabilization Comment: CONSIDER AQUATIC THERAPY For the Purpose of:: To decrease pain, To improve muscle performance and motor function, To increase tolerance to activity/condition/position, To improve ability of physical actions for home/community/work/leisure, To improve gait and locomotor functions Please do not hesitate to contact me at [phone] by phone or if you have questions or concerns regarding this new plan of care! Sincerely, Gena Mahoney PT, Cert MDT
--- NOTE | 2020-11-09 12:30 | HP.PTDCSUM ---
It has been my pleasure to treat ANICETO FINE referred by Dr. Cyndi Wallace DO, with the diagnosis of DISC HERNIATIONS T12 - L1, L5-S1 for a total of 25 visit(s). Discharge Date: 11/09/20 Please see the following information for a summary of their discharge status. Subjective: PATIENT REPORTS THAT OTHER THAN A LITTLE BIT OF PAIN WITH SITTING AND STANDING SHE IS PRETTY MUCH BACK TO NORMAL. STATES SHE IS BACK TO DOING ALMOST EVERYTHING BUT SHE IS A BIT MORE CAUTIOUS FOR FEAR OF TRIGGING THE PAIN. FOLLOW UP SCHEDULED WITH DR. WALLACE NOVEMBER 17 2020. STATES SHE IS DOING HER HOME EX PROGRAM. SHE PLANS TO CONTINUE GYM EX'S AT HER HUSBANDS WORK NOW THAT COVID RESTRICTIONS ARE LIFTING. PATIENT REPORTS SHE FEELS LIKE SHE CAN CONTINUE WITH THE STUFF WE HAVE TAUGHT HER ON HER OWN NOW. PATIENT REPORTS SHE STILL HAS SOME TIGHTNESS IN HER LEG BUT IT IS NOT PAINFUL AND SHE FEELS SHE HAS ALMOST FULL CONTROL OVER IT NOW. FOLLOW UP PENDING WITH NEUROLOGIST IN 2 MONTHS. PATIENT REPORTS SHE IS HAPPY THAT THE NEUROLOGIST DOES NOT THINK SHE HAD A STROKE. STILL WAITING ON APPROVAL FROM INSURANCE FOR NECK MRI, BLOODWORK AND MAYBE A NERVE CONDUCTION TEST. LOW BACK Pain Intensity (Out of 10): 2 MID BACK Pain Intensity (Out of 10): 0 NECK Pain Intensity (Out of 10): 0 % Improvement: 90 Objective/Function: PATIENT WAS SEEN TODAY FOR RE-ASSESSMENT OF PROGRESS TOWARD THE SET PT GOALS AND THE NEED FOR FURTHER PHYSICAL THERAPY VS READINESS FOR DISCHARGE. ALL GOALS HAVE BEEN MET. ALTHOUGH PATIENT CONTINUES TO FEEL TIGHTNESS IN HER R LEG SHE IS INDEP WITH A HEP AND HER SX'S HAVE PLATEAUED AT THIS POINT. MY HOPE IS THAT WITH TIME AND CONTINUED EX'S IT WILL LOOSEN UP FOR HER. UPON EXAM TODAY: INDEP GAIT INTO PT WITHOUT ANY ASSISTIVE DEVICES OR LOB AND NO GROSS DEVIATIONS NOTED. PATIENT NO LONGER CONSISTANTLY DEMO'S SPASTIC TYPE MOTION IN RIGHT LE DURING GAIT AND WHEN IT DOES OCCUR IT IS MUCH MORE WAYNE. Motor deficit: FAITH UE'S AND LE'S GROSSLY 5/5. Sensory deficit: FAITH LE LIGHT TOUCH SENSATION APPEARS INTACT AND SYMMETRICAL. ROM deficit: FAITH UE'S AND LE'S WFL. Dural Signs: NEGATIVE SLUMP TEST FAITH LE'S. Lumbar mvmt loss: flex - MIN. ext - MIN. R SG - MOD. L SG - MOD. PATIENT DENIES INCREASED BACK PAIN WITH LUMBAR ROM TESTING. THORACIC MVMT LOSS: MOD FAITH T/S ROTATION. PATIENT DENIES PAIN. Core strength: FAIR. Palpation: NO THORACIC OR LUMBAR TENDERNESS WITH PALPATION TODAY. CERVICAL MVMT LOSS IS MODERATE ALL PLANES EXCEPT FLEX AND PROTRUSION IS FULL. PATIENT REPORTS CHRONIC NECK PAIN AND TIGHTNESS. OTHER: PATIENT IS ABLE TO SINGLE LEG STANCE ON EA LE X >20 SEC EA. SHE IS ALSO ABLE TO MAINTAIN HER BALANCE AND DO A SLS HEEL RAISE ON EA LE. Goal 1:: DECREASE C/O SPINE PAIN, UE AND LE SX'S. Goal Progress: Goal Met Goal 2:: IMPROVE LIFTING, WALKING, SITTING, STANDING, TRAVEL, WORK/HOMEMAKING FUNCTION. Goal Progress: Goal Met Goal 3:: INSTRUCT IN PROPHYLAXIS Goal Progress: Goal Met Plan: D/C TO INDEP EX. PATIENT AGREEABLE. If there are questions or concerns regarding this patient's physical therapy, please feel free to call me at [phone]. Thank you for the referral of this patient. Sincerely, Gena Mahoney, PT, Cert MDT
== END 2020-11-09 19:00 | disposition home or self-care (01) ==
LOC: PT 11:30
PROVIDERS: PCP Internal Medicine; Referring Provider Internal Medicine; Visit Provider Internal Medicine
DX: M51.25 Other intervertebral disc displacement, thoracolumbar region (principal); M51.27 Other intervertebral disc displacement, lumbosacral region
CPT/HCPCS: 97014; 97110; 97162; 97164; 97530; G0283

== ENCOUNTER → 2020-11-23 10:15 | Outpatient (CLI) | payer OTHER, SELFPAY ==
[2020-10-25 09:02] VITALS: BMI 25.4
--- NOTE | 2020-11-23 10:16 | MRI_ITS ---
HISTORY: Right-sided weakness. TECHNIQUE: Routine MRI of the cervical spine was performed without and with contrast. # of images incl. paperwork: 290. IV Contrast dosage and agent: 13 mL Dotarem. COMPARISON: CTA neck 08/24/2020. FINDINGS: VERTEBRAE: Vertebral body heights maintained. Mild right facet edema at C3-4, likely degenerative. Small hemangioma in the T4 vertebral body. ALIGNMENT: No anterior or posterior subluxation. SPINAL CANAL: Morphology and signal of the cord within normal limits. No gross epidural collection or enhancing intradural extramedullary mass. SOFT TISSUES: No prevertebral fluid collection. INTERVERTEBRAL DISCS: C3-4: Facet arthropathy with mild right foraminal narrowing. C4-5: Mild disc bulge resulting in mild central canal stenosis. No significant posterior disc protrusion, central canal stenosis, or foraminal narrowing at the other levels. MRI/Spine Cervical W/WO Contrast IMPRESSION: Right facet arthritis at C3-4 with mild right foraminal narrowing. Mild disc bulge at C4-5 resulting in mild central canal stenosis. at 1633 Reported and signed by: Mercy Gaona MD Electronically Signed: Mercy Gaona MD at 16:32 EDT Tel , Service support ,
== END ==
PROVIDERS: PCP Internal Medicine; Referring Provider Psychiatry & Neurology Neurology; Visit Provider Psychiatry & Neurology Neurology
DX: R29.898 Other symptoms and signs involving the musculoskeletal system (principal)
CPT/HCPCS: 72156; A9575

== ENCOUNTER → 2021-01-05 09:22 | Outpatient (CLI) | payer OTHER, SELFPAY ==
[2020-10-25 09:02] VITALS: BMI 25.4
[2021-01-05 09:48] LABS: Erythrocyte Sedimentation Rate 9 mm/hr (0-30)
[2021-01-05 09:50] LABS: Absolute Lymphocyte Count 2.25 X10^3/uL (0.83-4.51); Absolute Neutrophil Count 7.5 X10^3/uL (2.0-7.7); Basophil# 0.06 X10^3/uL; Basophil% 0.6 % (0-1); Eosinophil# 0.14 X10^3/uL; Eosinophils% 1.3 % (0-5); Hematocrit 43.7 % (37-47); Hemoglobin 14.8 g/dL (12.0-15.0); Lymphocyte # 2.25 X10^3/ul (0.83-4.51); Lymphocyte % 21.2 % (19-41); Mean Corp Hgb Conc 33.9 g/dL (32-36); Mean Corpuscular Volume 97.5 fL (81-99); Mean Platelet Vol. 9.5 fl (6.2-12.0); Monocyte# 0.61 X10^3/uL; Monocyte% 5.7 % (0-10); NRBC Flagged by Analyzer 0 % (0-5); Neutrophil # 7.53 X10^3/uL (2.7-7.7); Neutrophil % 70.9 % (47-70); Platelet Count 339 K/mm3 (150-450); RBC Distribution Width CV 13.1 % (11.6-14.6); RBC Distribution Width SD 47.2 fl (35.1-43.9); Red Blood Count 4.48 M/mm3 (4.2-5.4); White Blood Count 10.6 K/mm3 (4.4-11.0)
[2021-01-05 10:18] LABS: Vitamin B12 283 pg/mL (211-911)
[2021-01-05 10:21] LABS: Hemoglobin A1c 5.2 % (3.8-5.6)
[2021-01-05 10:56] LABS: ALB/GLOB Ratio 1.1 RATIO (0.9-2.4); AST(SGOT) 21 U/L (15-37); Alanine Aminotransfer ALT/SGPT 34 U/L (13-56); Albumin, Serum 3.9 g/dL (3.2-5.0); Alkaline Phosphatase 92 U/L (45-117); Anion Gap 7 (5-15); BUN 9 mg/dL (7-18); BUN/Creat Ratio 15.4 RATIO (10-20); CPK Total, Creatine Kinase 38 U/L (26-192); Calcium,Total 8.4 mg/dL (8.5-10.1); Chloride 106 mmol/L (98-107); Creatinine, Serum 0.58 mg/dL (0.55-1.02); EST Glomerular Filtration Rate 117 mL/min (>60); Est Glom Filt Rate - Afr Amer 142 mL/min (>60); Globulin 3.5 g/dL (2.2-4.2); Glucose 92 mg/dL (74-106); Potassium 3.9 mmol/L (3.5-5.1); Protein, Total 7.4 g/dL (6.4-8.2); Sodium Level 138 mmol/L (136-145); Thyroid Stim Hormone (TSH) 1.23 uIU/mL (0.358-3.74)
[2021-01-05 15:56] LABS: CRP 6.17 mg/L (0.0-3.0)
[2021-01-07 14:09] LABS: ANTINUCLEAR ANTIBODIES DIRECT Positive (Negative); Anti-Centromere B Ab <0.2 AI (0.0-0.9); Anti-Chromatin <0.2 AI (0.0-0.9); Anti-Jo <0.2 AI (0.0-0.9); Anti-Scleroderma-70 AB <0.2 AI (0.0-0.9); RNP Ab 1.4 AI (0.0-0.9); SJOGREN'S Anti-SS-A test < 0.2 AI (0.0-0.9); SJOGREN'S Anti-SS-B test < 0.2 AI (0.0-0.9); Smith Ab <0.2 AI (0.0-0.9); Vitamin D 1,25-Dihydroxy 58.6 pg/mL (19.9-79.3)
[2021-01-07 16:10] LABS: Anti-dsDNA Ab <1 IU/mL (0-9)
[2021-01-07 20:08] LABS: Endomysial Antibody IgA Negative (Negative); Immunoglobulin A 157 mg/dL (87-352); Vitamin B1, Thiamine 147.5 nmol/L (66.5-200.0)
[2021-01-07 20:21] LABS: Myoglobin, Serum < 21 ng/mL (25-58); t-Transglutaminase IgA <2 U/mL (0-3)
== END ==
PROVIDERS: PCP Internal Medicine; Referring Provider Psychiatry & Neurology Neurology; Visit Provider Psychiatry & Neurology Neurology
DX: R19.7 Diarrhea, unspecified (principal); R29.898 Other symptoms and signs involving the musculoskeletal system; M79.10 Myalgia, unspecified site; Z87.898 Personal history of other specified conditions
CPT/HCPCS: 36415; 80053; 82550; 82607; 82652; 82746; 82784; 83036; 83516; 83874; 84425; 84443; 85025; 85652; 86038; 86140; 86225; 86235; 86255

== ENCOUNTER 2021-03-28 08:43 | Day surgery (SDC) | payer OTHER, SELFPAY ==
[2021-03-23 12:04] LABS: Hematocrit 43.4 % (37-47); Hemoglobin 14.7 g/dL (12.0-15.0); Mean Corp Hgb Conc 33.9 g/dL (32-36); Mean Corpuscular Hgb 33.4 pg (27.0-32.0); Mean Corpuscular Volume 98.6 fL (81-99); Mean Platelet Vol. 9.6 fl (6.2-12.0); Platelet Count 318 K/mm3 (150-450); RBC Distribution Width SD 47.2 fl (35.1-43.9); White Blood Count 10.9 K/mm3 (4.4-11.0)
[2021-03-23 12:16] LABS: Partial Thromboplast Time 28.7 Seconds (24.1-36.2)
[2021-03-23 12:32] LABS: Internal QC Validated? YES +Cl - CLEAR BKGD; Pregnancy, Serum, hCG Quali. NEGATIVE Negative
[2021-03-23 12:35] LABS: Creatinine, Serum 0.61 mg/dL (0.55-1.02); EST Glomerular Filtration Rate 112 mL/min (>60); Est Glom Filt Rate - Afr Amer 135 mL/min (>60); Magnesium 2.1 mg/dL (1.6-2.6)
--- NOTE | 2021-03-27 18:35 | HP.PCM_ITS ---
History and Physical Date of Admission: 03/28/21 Surgical History and Physical Che Figueroa, a 50 year old female 2 0 0 0 2, presents for RAVH/LSO/RS on March 28, 2021 at 10:30. -- Heavy Menses; LLQ Intermittant Pain; Uterine Fibroids -- LLQ pain which began 2 weeks. Che claims it started gradually and has been present 2 weeks. It occurs intermittantly. It is located in the LLQ of the abdomen. Che characterizes it to be non-radiating. Che characterizes the quality cramping.; Che characterizes the quality aching. Severity is moderate and very concerned; Associated signs and symptoms are occasional heavy menses. Additional comments are: U/S today shows multiple fibroids, largest 6 cm and submucosal (adjacent to uterus); ovaries appear normal. MEDICATIONS HISTORY: ALLERGIES: NKA, Penicillins and Hives and/or rash Infections - chicken pox as child Illnesses - GERD Accidents - no injuries of consequence Hospitalizations - see surgery Review of Systems: GENERAL - Denies fever, or chills SKIN - Denies skin changes EYES - Denies visual changes EARS - Denies difficulty hearing NOSE - Denies nasal congestion or bleeding MOUTH - Denies sore throat or difficulty swallowing NECK - Denies pain or swelling RESPIRATORY - Denies shortness of breath or wheezing CARDIOVASCULAR - Denies palpitations or chest pain GASTROINTESTINAL - Denies nausea, vomiting, diarrhea, constipation GENITOURINARY - Denies dysuria, frequency of urination, incontinence of urine MUSCULOSKELETAL - Denies joint or muscle pain NEUROLOGICAL - Denies localized numbness or weakness PSYCHIATRIC - Denies depression or anxiety ENDOCRINE - Denies heat or cold intolerance, weight loss or gain HEMATO-IMMUNOLOGIC - Denies excesive bleeding with cuts SOCIAL HISTORY: Alcohol Use - denies drinking Smoking - 1 PPD (trying to quit) Diet - no particular diet Lifestyle - high stress lifestyle and Exercise - minimal Seat Belt Use - always 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 Father: Heart Disease. Maternal Grandmother: emphysema. Maternal Grandfather: Heart Disease. Paternal Grandmother: DM II. Paternal Grandfather: emphysema and Heart Disease. MENSTRUAL HISTORY: LMP Known?- DefiniteAmount/Duration - 5 days, Regularity - Regular, Frequency - 21 days, LMP - 02/04/21, Age Onset Menarche - 15 PAST PREGNANCIES: Total Pregnancies - 2; Full Term Pregnancies - 2; Premature - 0; Abortions, Induced - 0; Abortions, Spontaneous - 0; Ectopics - 0; Multiple Births - 0; Living Children - 2 SURGICAL HISTORY: 1. tonsils 2. 10/16/2019 skin cancer removed from Vulva ; Dr. Curtis 3. 2017 Skin Cancer Removed from Nose PHYSICAL EXAM BP- 130/84 Sitting, Right arm, regular cuff Weight- 138.29886 lbs Height- 63 inch BMI:24.49 CONSTITUTIONAL - NAD, well nourished, and well developed SKIN - No rash, lesions, or ulcers HEENT - Normocephalic, PERRLA, EOMI NECK - No nodes, no nuchal rigidity and thyroid normal size and texture LYMPH NODES - Palpation of lymph nodes in neck and groins within normal limits LUNGS - CTA x2 without wheezes, crackles or rales CARDIAC - Regular rate and rhythm without rubs, murmurs, or gallops BREAST - No dominant masses, no tenderness, no axillary adenopathy, no nipple discharge, no skin changes ABDOMEN - Without hepatosplenomegaly, distention, masses, rebound, or guarding; normal bowel sounds; no hernias EXTREMITIES - No edema or calf tenderness NEUROLOGICAL - Cranial nerves II-XII grossly intact PSYCHIATRIC - A and O to time, place, person, mood and affect External Genitial Vagina - non-tender without lesions and no evidence of recurrent ANNELISE Urethra/Urethral Meatus - non-tender Bladder - non-tender Vagina - vaginal shah are pink and moist without loss of rugae and no evidence of atropy Cervix - without cervical motion tenderness and has normal size and features without evident lesions Uterus - 5-6 cm in size, mobile and nontender Adnexa - clear without massess or tenderness ASSESSMENT/PLAN: 1. Abdominal Pain,LLQ; Menorrhagia Uncertain etiology since it is persisting and intermittant. May be due to uterine fibroid as it seems to be worse certain times of her cycle and menses are occasionally severe. Doubt pain of ovarian origin. Diuscussed options for symptomatic fibroids (low back pain, heavy menses) and pt desires proceeding with RAVH/LSO. Discussed RBAs of surgery and pt desires we proceed.
[2021-03-28] VITALS (12 sets, daily range): BP systolic 95–134; BP diastolic 55–77; PULSE 54–69; RESP 16–18; TEMP 36.1–36.9; O2SAT 93–100; BMI 24.3
[2021-03-28] MEDS: Gabapentin 600 MG Tablet PO (08:40)
[2021-03-28 09:35] LABS: Bedside Glucose 115 mg/dL (70-110)
[2021-03-28 09:35] LABS: Internal QC Validated? YES +Cl - CLEAR BKGD; Pregnancy, Urine Negative Negative
[2021-03-28] MEDS: Acetaminophen 500 MG Tablet 1000 MG PO ×2 (10:17→19:09)
[2021-03-28] MEDS: Lactated Ringers 1,000 ML 40 ML IV ×2 (10:17→14:30)
--- NOTE | 2021-03-28 10:40 | HYST_PTH ---
PATIENT: ANICETO FINE LOC: [facility] [place][id number] AGE/SX: 50/F ROOM: RE03/28/[address]: Dr. Rober Shepard MD : 1970 BED: DIS: 03/28/2021 SPEC #: [id number] RECD: 03/28/21 15:13 STATUS: MOJGAN REAbigail #: [id number] MARY: 03/28/21 10:[address]: Rober Shepard DEPT: SURGICAL PATHOLOGY RECD BY: Neal Hardwick ENTERED: 03/29/21 08:34 SP TYPE: HYSTERECT OTHR DR: Dr. Cyndi Salcedo, Tissues: Uterus, NOS Procedures: Surgery Specimen Level V HEADER OPERATION: ERAS, lap robotic hysterectomy, left salpingo-oophorectomy PRE-OP DIAGNOSIS: Abdominal pain left lower quadrant, menorrhagia TISSUE SUBMITTED: Uterus, cervix, left fallopian tube and left ovary MICROSCOPIC DIAGNOSIS Uterus, cervix, bilateral fallopian tubes and left ovary: Cervix ? chronic inflammation. Endometrium ? secretory endometrium. Myometrium ? intramural to submucosal leiomyomas (largest measuring 4 cm in diameter). Bilateral fallopian tubes - no pathologic diagnosis. Left ovary ? hemorrhagic corpus luteum cyst (3.0 cm in greatest dimension). SJ:rg 03/30/2021 MICROSCOPIC DESCRIPTION Slides are reviewed. GROSS DESCRIPTION Received in fixative is one container labeled with the patient's name and designated uterus, cervix, left fallopian tube and left ovary. The specimen consists of a hysterectomy specimen consisting of uterus with attached bilateral fallopian tubes, left ovary, detached cervix and detached nodular mass. The uterus, cervix and detached nodular mass weighs in aggregate 160 gm. The cervix measures 4 x 2.5 x 2 cm. The ectocervical mucosa is unremarkable. The external os is oval in contour. The endocervical canal measures 4 cm in length and the endocervical mucosa is todd, glistening and unremarkable. The cervix could not be oriented. The uterus measures 7 x 7 x 5 cm. The serosal surface is focally ragged. The triangular endometrial cavity measures 4.5 cm in length and 2.5 cm in width. The endometrium is todd, glistening without any mass lesion and measures <0.1 cm in thickness. Sections of uterine wall reveal a large submucosal to intramural mass in the posterior uterine wall measuring 4 cm in diameter. A few small intramural masses are also noted. Section of these masses reveal whorl cut surfaces without areas of hemorrhage, necrosis or cystic degeneration. The uninvolved uterine wall measures up to 2.5 cm in thickness. The right fallopian tube measures 6 cm in length and 0.6 cm in diameter. The fimbrial end is identified. Sections reveal unremarkable cut surfaces. The left fallopian tube measures 6 cm in length and 0.5 cm in diameter. It is similar appearance to right. No tubo-ovarian adhesions are noted. The soft to cystic left ovary measures 3.5 x 2.5 x 2 cm. Sections reveal a hemorrhagic cyst measuring 3.0 cm in greatest dimension. Pole Peeling Machine Operator sections are submitted in 12 cassettes as follows: 1 & 2 - cervix, 3 & 4 - anterior uterine wall, 5 & 6 - posterior uterine wall, 7 - largest nodular mass, 8 - smaller nodular masses, 9 - right fallopian tube, 10 - left fallopian tube and left ovary, 11 & 12 - more sections left ovary. / JACKSON:vinnie 03/29/21 TC:1 CPT: 93526
[2021-03-28] MEDS: Cefazolin 2 GM in 0.9% Normal Saline 100 ML IV (12:13)
--- NOTE | 2021-03-28 12:15 | PCM.OPRPT ---
Report of Operation Date of Procedure: 03/28/21 Pre-Operative Diagnosis: Menorrhagia, Submucous Fibroids, Left Lower Quadrant Pain Post-Operative Diagnosis: Menorrhagia, Submucous Fibroids, Left Lower Quadrant Pain Surgery/Procedure Performed:: Robotic Assisted Vaginal Hysterectomy, Left Salpingo-Oophorectomy, Right Salpingectomy Description of Surgical Findings:: 10 cm fibroid uterus with normal-appearing fallopian tubes and ovaries. Left hemorrhagic cyst present. Approximately 4 to 5 cm fibroid noted in the right anterior portion of the uterus and a 2 cm fibroid noted left of the cervix. Surgeon: Rober Shepard laboratory animal caretaker: Jose Sanchez Type of Anesthesia: General/Supplemental (Endotracheal) Anesthesiologist: Rolando Cuevas Specimen's removed: Uterus, left fallopian tube and ovary, right fallopian tube Drains: Fuentes to straight drain Estimated Blood Loss (mL): Minimal Fluids Replaced: Crystalloid Description of Procedure: Surgeon: Rober Shepard MD, FACOG Indication: This is a 50 year old patient who has been having problems with heavy periods and chronic left lower quadrant pain. Conservative measures have not been helpful. The patient has been counseled regarding the risks, benefits and alternatives of this procedure including the possibility of bleeding, infection, and injury to surrounding structures such as bowel bladder and all questions were answered. She understands that if BSO is needed that she will need to be on HRT for an indefinite period of time. Procedure: Pt taken to the operating room where, after induction of general anesthesia, the patient was prepped and draped in the usual sterile fashion and placed on a non-slip Huggy-u-vac device. Trendelenburg test was satisfactory. Bladder was drained of urine with a Fuentes catheter which was left in place. Anterior cervix grasped and cervix was dilated to about 3-4 mm. Uterus sounded to 8 cms. 0-Vicryl suture was placed at the 3:00 and 9:00 position of the cervix. A small Advincula Primer Supervisor Uterine Manipulator was then placed in the uterus and attention was turned to the laparoscopic portion of the procedure. Ropivocaine 0.5% was injected approximately 2-3 cm superior to the umbilicus and an 8 mm robotic camera port was introduced directly with intraperitoneal placement confirmed with CO2 insufflation. 8 mm robotic side ports were introduced under direct visualization approximately 10 cm lateral and 2 cm inferior to the umbilical port. A 5 mm left upper quadrant port was introduced and airseal insufflation with CO2 was started. The above findings were noted. Robot was docked without difficulty and attention turned to the robotic portion of the procedure. Approximately 30 cc of Ropivicaine was used. Left infundibulopelvic ligaments and right mesosalpinx were ligated with 35 maher bipolar coagulation to the level of the round ligament. The posterior aspect of the cervix was identified and then opened for about 1 cm using 25 watt monopolar cautery. Bladder flap was opened and divided to the level of the round ligaments using monopolar cautery. Progressive bites were then ligated on each side of the cervix with 35 maher bipolar cautery to the uterine arteries. The anterior vaginal mucosa was entered and cervix circumscribed with monopolar cautery. Uterus and attached tubes and left ovary were removed through the vagina. Vaginal cuff was closed first with 0-Vicryl Alanis stitches placed at each angle followed by closure of the mid-cuff with 0-Monocryl V-lock suture in two layers. Pelvis was copiously irrigated with saline and the right ureter was noted to peristalse. Lucille was placed across the vaginal cuff to the help with some postoperative oozing. Robot was undocked and trocars were removed with as much gas as possible. Incisions were closed with 4-0 Monocryl subcuticular sutures and incisions covered with steri-strips. The patient tolerated the procedure well and was taken to the recovery room in satisfactory condition. Sponge, instruments and needle counts were all correct. There were no apparent complications of the surgery. Ancef 2 gms IV was given prior to the procedure. Grafts/Implants Used: None Complications None Admit VTE Documentation VTE Present on Admission: Yes VTE Mechan Device Prophylaxis: SCD's
--- NOTE | 2021-03-28 12:17 | PCM.DC ---
Discharge Instructions Diet Discharge Diet: No restrictions Activity Discharge Activity: May Shower and May Take a Tub Bath May resume sexual activity in: 6 weeks (nothing in the vagina.) Lifting Restrictions: 25 pounds for 6 weeks. Additional Activity Instructions:: Nothing in the vagina for 6 weeks please; no lifting more than 20-25 lbs for 6 weeks. Use Ibuprophen 800 mg orally every 8 hours as needed for pain. Can also add Tylenol 1000 mg every 8 hours if needed for pain. If Ibuprophen and Tylenol are not effective then use the Oxycodone but keep in mind it can cause serious constipation issues. Drink lots of water. Call if bleeding more than a pad per hour. Use the colace as constipation is a big issue after this type of surgery. Steps and walking are OK. Activity is encouraged but do not over do it !! Dressing / Incision Call your doctor if your incision/area has: Continuous Slow Oozing, Sudden Increased Bleeding, Increased Pain/ Swelling, Increased Redness and Foul Smelling Discharge Call your doctor if you observe: Fever of 101 or Higher, Inability to urinate, Inability to have a bowel movement, Using more than 1 pad per hour and - (Some vaginal bleeding may be noted for up to 4-8 weeks.) Cleanse incision/area with: - (Let the soapy water run over your incision, rinse and pat dry.) Additional Dressing/Incision Instructions:: The white strips (Steri Strips) on your incisions will fall off on their own. If they fall off and it bothers you it is okay to put Band-Aids across the incisions. Follow Up Care Please Follow Up With: Rober Shepard MD When: Call [phone] for an appointment to be seen in 2 weeks. Test Results: Test results from this visit will be discussed in further detail at your follow-up appointment, if applicable. Discharge Plan Admission Primary Reason for Your Visit: Robotic Vaginal Hysterectomy Attending Provider: Rober Shepard Primary Care Provider: Cyndi Salcedo Discharge Orders/Prescriptions Prescriptions: New oxycodone 5 mg capsule 5 mg PO Q6H PRN (Reason: pain) 7 Days Qty: 10 RF: 0 docusate sodium 100 mg tablet 100 mg PO BID PRN (Reason: constipation) Qty: 60 RF: 1 Continued Adult Probiotic 3 billion cell capsule 3,000 mmu cells PO DAILY RF: 0 ascorbate calcium (vitamin C) 500 mg tablet 500 mg PO DAILY RF: 0 cholecalciferol (vitamin D3) [Vitamin D3] 25 mcg (1,000 unit) Capsule 25 mcg PO DAILY RF: 0 meloxicam [Mobic] 7.5 mg tablet 7.5 mg PO BID PRN (Reason: pain) RF: 0 Referrals / Follow Up: Cyndi Salcedo DO [Primary Care Provider] - Disposition Disposition (needs filled in before D/C Order can be placed): Home, Self Care
[2021-03-28] MEDS: Ropivacaine 0.5% 30 ML Vial (12:46)
[2021-03-28] MEDS: Ondansetron 4 MG/2 ML Vial IV (15:48)
[2021-03-28] MEDS: oxyCODONE 5 MG Tablet PO (17:05)
== END 2021-03-28 20:56 | disposition home or self-care (01) ==
LOC: SDC 08:43 → AC 08:44
PROVIDERS: Anesthesiology; PCP Internal Medicine; Referring Provider Obstetrics & Gynecology; Visit Provider Obstetrics & Gynecology
PROC: 0UT94ZZ Resection of Uterus, Percutaneous Endoscopic Approach (ICD-10-PCS; CPT 58552; principal; 2021-03-28 10:20)
DX: N92.0 Excessive and frequent menstruation with regular cycle (principal); D25.0 Submucous leiomyoma of uterus; D25.1 Intramural leiomyoma of uterus; N83.12 Corpus luteum cyst of left ovary; G89.29 Other chronic pain; F17.200 Nicotine dependence, unspecified, uncomplicated; Z20.822 Contact with and (suspected) exposure to COVID-19
CPT/HCPCS: 00944; 58552; S2900; 36415; 81025; 82565; 82962; 83735; 84703; 85027; 85610; 85730; 86850; 86900; 86901; 87081; 87426; 88307; C9803; J7120; A4216; J2405

== ENCOUNTER → 2021-12-06 | Outpatient (CLI) | payer BC, SELFPAY ==
--- NOTE | 2021-12-06 13:20 | BI_ITS ---
MAMMOGRAPHY - BILATERAL SCREENING REASON FOR EXAM: Female, 51 years old. Routine annual screening examination. PERTINENT HISTORY: Non-contributory. TECHNIQUE: Digital bilateral breast svetlana (3D mammographic acquisition) in the CC and MLO projections. 2-D mediolateral oblique (MLO) and craniocaudad (CC) views of both breasts were obtained. CAD: Full Field Digital Mammography with Computer Added Detection was performed. COMPARISON: Comparison is made with prior study dated 07/02/2020 and 06/23/2019. FINDINGS: Breast Composition: The breasts are heterogeneously dense, which may obscure small masses. There are no dominant masses or suspicious calcifications. No other significant abnormalities are identified. There has been no significant change since the prior study. BI/SCRN MAMM (CAD)W/SVETLANA BILAT IMPRESSION: Stable bilateral screening mammogram. Yearly follow-up mammogram recommended. (A) ASSESSMENT CATEGORY: BIRADS Category 1: Negative. A letter regarding these results will be sent to the patient by the facility within 30 days. Approximately 10% of breast cancers are not detected by mammography. A normal mammogram should not delay biopsy of a clinically suspicious abnormality. [id number] Electronically Signed: Efra Linares MD at 14:05 EDT ,
== END | disposition home or self-care (01) ==
LOC: OPBI 13:13
PROVIDERS: PCP Internal Medicine; Visit Provider Obstetrics & Gynecology
DX: Z12.31 Encounter for screening mammogram for malignant neoplasm of breast (principal)
CPT/HCPCS: 77063; 77067

== ENCOUNTER → 2022-06-29 | Outpatient (CLI) | payer OTHER, SELFPAY ==
--- NOTE | 2022-06-29 15:47 | RAD_ITS ---
EXAM: XR CHEST, 2 VIEWS CLINICAL INDICATION: clavicular edema TECHNIQUE: Frontal and lateral views of the chest. This report was created using [employer] report generation technology. COMPARISON: 08/24/2020 FINDINGS: LUNGS AND PLEURAL SPACES: Unremarkable. No consolidation or edema. No pneumothorax. No effusion. HEART: Unremarkable. Cardiac silhouette not enlarged. MEDIASTINUM: Central airways and mediastinal contour are unremarkable. BONES/JOINTS: Unremarkable. SOFT TISSUES: Unremarkable. RAD/Chest PA and Lateral IMPRESSION: No radiographic evidence of acute cardiopulmonary disease. Electronically Signed: Maxwell Mclaughlin MD at 16:09 RUST ,
== END | disposition home or self-care (01) ==
LOC: RAD 15:41
PROVIDERS: PCP Internal Medicine; Referring Provider Nurse Practitioner Family; Visit Provider Nurse Practitioner Family
DX: M89.319 Hypertrophy of bone, unspecified shoulder (principal)
CPT/HCPCS: 71046

== ENCOUNTER 2022-09-27 15:30 | Outpatient (RCR) | payer OTHER, SELFPAY ==
--- NOTE | 2022-07-05 16:18 | HP.PTEVAL ---
Patient's Visit Information ANICETO FINE is a 51 year old F referred to Physical Therapy by LOGAN Salgado with a diagnosis of Neck and Lumbar Pain. Date of Evaluation: 07/05/22 Physical Therapist: Majo Lazaro DPT - Visit Plan Frequency: 2x /Week Duration: 4 Weeks Plan: Focus on LE and core strength/stabilization and scapular s/s- postural correction- manual PRN. HEP Given IE: Posture, scap retractions, UT stretch, Levator Stretch, Rhomboid Stretch - Subjective Patient reports that back in late Jan early Feb she started having neck pain- she had a cold and tons of drainage and was coughing a lot- but it hasn't gotten better- the pain is sharp pains down the right side of the neck and tightness. She feels that she is just tense all over. She feels its lumpy but the PCP thinks that its tightness. She feels like an electrical shock sensation in the neck and radiates down the spine to right above the belt line. Agg: driving too long or reading her book Worst: 10/18 Eases: tennis balls Best: 06/20. She uses the tennis ball almost every day. No increase in blurred vision, dizziness or FONSECA. No N/T in her hands at this time. X-ray of her cervical spine is good. She has not had an MRI. She has had issues with her lumbar spine for years- In 2020 she was unable to walk and had to go to the ER- they did MRI and showed herniated discs- she then came PT- that helped a lot and she still has some issues with her hamstring. She has had low back pain for years. She has had issues since she had epidurals with her children. She doesn't know if she is in a flare up with her back since it bothers her all the time and she just deals with it. She is unable to do her cleaning and more active activities. Worst: -01/18 Agg: anything Eases: tennis balls. Best: 06/20. Sleep: not disturbed anymore. She has pain that radiates down to the right hamstring. She decribes the pain as burning. 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 No Loss of change in bowel or bladder PMHX/Meds: see list in chart - Objective Posture: FH, RS- can correct with verbal cues but is unable to maintain. Gait: no deviation noted. HR/TR: able without UE A. SLS: [address] foot down on the floor bilaterally. ROM: Cervical, Lumbar, UE and LE: WFL in all planes. Palpation: tender along paraspinals from occiput to sacrum- no pain in gluts- discomfort in upper trap and levator. Strength: Scap: fair minus, Shoulder: 4+/5 throughout, Elbow: 5/5, Wrist: 5/5, Lumbar: fair minus, Hip: 4+/5 throughout, Knee: 5/5, Ankle: 5/5. Flex: HS: moderate, Gastroc: moderate. Sensation: WFL to gross touch bilateral UE/LE. Reflex: WFL - Special Tests L/S Slump test left side: Negative L/S Slump test right side: Negative L/S Left Straight Leg Raise: Negative L/S Right Straight Leg Raise: Negative - Balance/Special Test Scores Oswestry Neck Score: 17 - Goals Goal 1:: Patient will be I with HEP and progression Goal Time Frame: 4-6 Weeks Goal 2:: Patient will maintain proper posture t/o tx session to demo inc scapular and core s/s Goal Time Frame: 4-6 Weeks Goal 3:: Patient will report no more than 5/10 pain for 1 week Goal Time Frame: 4-6 Weeks Goal 4:: Patient will report 80% improvement - Rehabilitation Potential Physical Therapy Diagnosis: Patient presents with hypomobility- she has decreased Core and Scapular strength/stabilization and muscular endurance leading to poor posture and increased pain with ADL's. Rehabilitation Potential: Good - Anticipated Interventions Thank you for the opportunity to evaluate your patient. For Medicare and Medicare HMO plans, please review the plan of care and approve it. It will need to be FAXED BACK to us at [phone] for Medicare purposes. For Medicare only, by signing this I certify the plan of care. Please let me know if there are questions or concerns regarding this plan of care. Physician Signature: Date:
--- NOTE | 2022-08-10 16:17 | HP.PTREVAL ---
Leelee Nayak, JEANMARIE-C, It has been my pleasure to treat ANICETO FINE over the last 9 visits for Neck and Lumbar Pain. Please see the progress note below for an update on the physical therapy plan of care! Subjective: Patient reports that she is so much better- she is not having shooting pains but she still has pain. She feels that she still has burning pain in the spine that went away after some therapy session but come back. Objective/Function: Posture: FH, RS- can correct with verbal cues but is unable to maintain. Gait: no deviation noted. HR/TR: able without UE A. SLS: 5 [address] foot down on the floor bilaterally. ROM: Cervical, Lumbar, UE and LE: WFL in all planes. Palpation: tender along paraspinals from occiput to sacrum- no pain in gluts- discomfort in upper trap and levator. Strength: Scap: fair minus, Shoulder: 4+/5 throughout, Elbow: 5/5, Wrist: 5/5, Lumbar: fair minus, Hip: 4+/5 throughout, Knee: 5/5, Ankle: 5/5. Flex: HS: moderate, Gastroc: moderate. Sensation: WFL to gross touch bilateral UE/LE. Reflex: WFL. - Special Tests. L/S Slump test left side: Negative. L/S Slump test right side: Negative. L/S Left Straight Leg Raise: Negative. L/S Right Straight Leg Raise: Negative Plan Plan: 08/10/22: Continue 2x a week for 4 weeks. Focus on LE and core strength/stabilization and scapular s/s- postural correction- manual PRN Balance/Gait/Functional tests - Balance/Special Test Scores Oswestry Neck Score: 10 Goals Goal 1:: Patient will be I with HEP and progression Goal Time Frame: 4-6 Weeks Goal 2:: Patient will maintain proper posture t/o tx session to demo inc scapular and core s/s Goal Time Frame: 4-6 Weeks Goal 3:: Patient will report no more than 5/10 pain for 1 week Goal Time Frame: 4-6 Weeks Goal 4:: Patient will report 80% improvement Anticipated Interventions Please do not hesitate to contact me at [phone] by phone or if you have questions or concerns regarding this new plan of care! Sincerely, KYLE JacobsonT
--- NOTE | 2022-09-27 16:01 | HP.PTDCSUM ---
It has been my pleasure to treat ANICETO FINE referred by LOGAN Salgado, with the diagnosis of Neck and Lumbar Pain for a total of 14 visit(s). Discharge Date: Please see the following information for a summary of their discharge status. Subjective: Patient reports that she still has the same pains in the back the neck pains is much better, She has buzzing pains around her neck and down some on the left side. She has had multiple MRI's on both her cervical and thoracic spine. Its been about a year since she has been to the neurologist. neck and LB Pain Intensity (Out of 10): 4 % Improvement: 75 Objective/Function: Posture: FH, RS- can correct with verbal cues but is unable to maintain. Gait: no deviation noted. ROM: Cervical, Lumbar, UE and LE: WFL in all planes. Palpation: tender along paraspinals from occiput to sacrum- no pain in gluts- discomfort in upper trap and levator. Strength: Scap: fair minus, Shoulder: 4+/5 throughout, Elbow: 5/5, Wrist: 5/5, Lumbar: fair minus, Hip: 4+/5 throughout, Knee: 5/5, Ankle: 5/5. Flex: HS: moderate, Gastroc: moderate. Sensation: WFL to gross touch bilateral UE/LE. Reflex: WFL. - Special Tests. L/S Slump test left side: Negative. L/S Slump test right side: Negative. L/S Left Straight Leg Raise: Negative. L/S Right Straight Leg Raise: Negative Goal 1:: Patient will be I with HEP and progression Goal Progress: Progressing Goal 2:: Patient will maintain proper posture t/o tx session to demo inc scapular and core s/s Goal Progress: Progressing Goal 3:: Patient will report no more than 5/10 pain for 1 week Goal Progress: Progressing Goal 4:: Patient will report 80% improvement Goal Progress: Progressing Plan: 09/27/22: Will return to MD for further evaluation. 08/10/22: Continue 2x a week for 4 weeks. Focus on LE and core strength/stabilization and scapular s/s- postural correction- manual PRN If there are questions or concerns regarding this patient's physical therapy, please feel free to call me at [phone]. Thank you for the referral of this patient. Sincerely, Majo Lazaro, DPT Balance/Gait/Functional tests - Balance/Special Test Scores Oswestry Neck Score: 10
== END 2022-09-27 19:00 | disposition home or self-care (01) ==
LOC: PT 15:30
PROVIDERS: PCP Internal Medicine; Referring Provider Nurse Practitioner Family; Visit Provider Nurse Practitioner Family
DX: M51.36 Other intervertebral disc degeneration, lumbar region (principal); M54.2 Cervicalgia
CPT/HCPCS: 97110; 97162; 97164

== ENCOUNTER → 2022-11-01 | Outpatient (CLI) | payer OTHER, SELFPAY ==
[2022-11-01 10:20] LABS: Absolute Lymphocyte Count 1.81 X10^3/uL (0.83-4.51); Absolute Neutrophil Count 4.8 X10^3/uL (2.0-7.7); Basophil# 0.06 X10^3/uL; Basophil% 0.8 % (0-1); Eosinophil# 0.08 X10^3/uL; Eosinophils% 1.1 % (0-5); Hematocrit 46.1 % (37-47); Hemoglobin 15.4 g/dL (12.0-15.0); Lymphocyte # 1.81 X10^3/ul (0.83-4.51); Lymphocyte % 25.1 % (19-41); Mean Corp Hgb Conc 33.4 g/dL (32-36); Mean Corpuscular Hgb 33.4 pg (27.0-32.0); Mean Platelet Vol. 10.5 fl (6.2-12.0); Monocyte# 0.47 X10^3/uL; Monocyte% 6.5 % (0-10); NRBC Flagged by Analyzer 0 % (0-5); Neutrophil # 4.76 X10^3/uL (2.7-7.7); Neutrophil % 66.2 % (47-70); Platelet Count 291 K/mm3 (150-450); RBC Distribution Width CV 12.4 % (11.6-14.6); RBC Distribution Width SD 45.6 fl (35.1-43.9); Red Blood Count 4.61 M/mm3 (4.2-5.4); White Blood Count 7.2 K/mm3 (4.4-11.0)
[2022-11-01 10:57] LABS: ALB/GLOB Ratio 1.3 RATIO (0.9-2.4); AST(SGOT) 18 U/L (15-37); Alanine Aminotransfer ALT/SGPT 29 U/L (13-56); Albumin, Serum 4.2 g/dL (3.2-5.0); Alkaline Phosphatase 109 U/L (45-117); Amylase 64 U/L (25-115); Anion Gap 5 (5-15); BUN 8 mg/dL (7-18); BUN/Creat Ratio 13.1 RATIO (10-20); CRP < 2.90 mg/L (0.0-3.0); Calcium,Total 9.7 mg/dL (8.5-10.1); Chloride 104 mmol/L (98-107); Creatinine, Serum 0.61 mg/dL (0.55-1.02); EST Glomerular Filtration Rate 110 mL/min (>60); Est Glom Filt Rate - Afr Amer 133 mL/min (>60); Globulin 3.2 g/dL (2.2-4.2); Glucose 112 mg/dL (74-106); Lipase 42 U/L (13-75); Potassium 4.9 mmol/L (3.5-5.1); Protein, Total 7.4 g/dL (6.4-8.2); Sodium Level 141 mmol/L (136-145)
== END | disposition home or self-care (01) ==
LOC: LABSPEC 10:05
PROVIDERS: PCP Internal Medicine; Referring Provider Nurse Practitioner Family; Visit Provider Nurse Practitioner Family
DX: M54.50 Low back pain, unspecified (principal); R10.13 Epigastric pain; K58.9 Irritable bowel syndrome, unspecified
CPT/HCPCS: 80053; 82150; 83690; 85025; 86140

== ENCOUNTER → 2022-12-29 | Outpatient (CLI) | payer OTHER, SELFPAY ==
--- NOTE | 2022-12-29 09:38 | BI_ITS ---
MAMMOGRAPHY - BILATERAL SCREENING 3-D TOMOSYNTHESIS REASON FOR EXAM: Female, 52 years old. Routine screening PERTINENT HISTORY: No significant family history. TECHNIQUE: 2-D mammograms and 3-D Tomosynthesis of the breast (s) were performed. CAD was performed. COMPARISON: 07/02/2020 FINDINGS: The breast composition is composed of scattered fibroglandular density. Scattered benign calcifications are seen. No dense spiculated masses or suspicious microcalcifications are identified. No architectural distortion is identified. There is no skin thickening or retraction. There has been no significant change since the prior study. BI/SCRN MAMM (CAD)W/SVETLANA BILAT IMPRESSION: No mammographic signs of malignancy. Routine yearly mammograms recommended. ASSESSMENT CATEGORY: BIRADS Category 1: Negative. A letter regarding these results will be sent to the patient by the facility within 30 days. FOLLOW UP RECOMMENDATION: Yearly follow up mammogram recommended. (A) Approximately 10% of breast cancers are not detected by mammography. A normal mammogram should not delay biopsy of a clinically suspicious abnormality. Electronically Signed: Jose Nuñez MD at 11:58 EDT ,
== END | disposition home or self-care (01) ==
LOC: OPBI 09:37
PROVIDERS: PCP Internal Medicine; Referring Provider Internal Medicine; Visit Provider Internal Medicine
DX: Z12.31 Encounter for screening mammogram for malignant neoplasm of breast (principal)
CPT/HCPCS: 77063; 77067

== ENCOUNTER → 2023-08-01 | Outpatient (CLI) | payer OTHER, SELFPAY ==
--- NOTE | 2023-08-01 13:31 | NEURO ---
NCS and/or EMG Patient Report Ordering Doctor: Adam Chavarria DATE OF SERVICE: 08/01/23 Che has complaints of numbness and tingling in both hands. Symptoms are intermittent and have persisted for several years. Electrodiagnostic findings: Left median motor nerve demonstrates prolonged distal latency with normal amplitude and borderline reduced conduction velocity. Right median motor nerve demonstrates prolonged distal latency with normal amplitude and conduction velocity. Normal ulnar motor response bilaterally, including conduction across the elbow. Normal median and ulnar F?waves. Prolonged median sensory latency at the right wrist. Normal ulnar and radial sensory responses. Needle EMG testing was performed in the upper limbs all muscles tested showed no evidence of denervation with normal motor unit action potentials. Electrodiagnostic impression: This is an abnormal study in the upper limbs 1. Electrodiagnostic findings demonstrate bilateral median mononeuropathy. This is consistent with a mild to moderate bilateral carpal tunnel syndrome. Multi Select Codes Neurology Neurology Interp Codes: 94820-81 Musc test done w/n test comp (interp) (2) and 41173-79 Nrv cndj test 13/> studies (interp)
== END | disposition home or self-care (01) ==
LOC: PSN 11:59
PROVIDERS: PCP Internal Medicine; Referring Provider Student in an Organized Health Care Education/Training Program; Visit Provider Student in an Organized Health Care Education/Training Program
DX: M25.532 Pain in left wrist (principal); M25.531 Pain in right wrist; R20.2 Paresthesia of skin
CPT/HCPCS: 95886; 95913

== ENCOUNTER 2023-08-29 18:11 | Outpatient (CLI) | payer OTHER, SELFPAY ==
[2023-08-29 18:36] LABS: Potassium 4.5 mmol/L (3.5-5.1)
== END 2023-08-29 23:59 | disposition home or self-care (01) ==
LOC: LAB 18:13
PROVIDERS: PCP Internal Medicine; Visit Provider Internal Medicine
DX: E87.5 Hyperkalemia (principal)
CPT/HCPCS: 36415; 84132

== ENCOUNTER → 2023-09-06 | Outpatient (CLI) | payer OTHER, SELFPAY ==
--- NOTE | 2023-09-06 07:16 | US_ITS ---
STUDY: ABDOMINAL ULTRASOUND - RIGHT UPPER QUADRANT REASON FOR VISIT: Female, 52 years old RUQ Pain TECHNIQUE: Ultrasound evaluation of the right upper quadrant was performed with real-time and static bingham-scale imaging. TECHNICAL QUALITY: Adequate. COMPARISON: Comparison is made with prior sonogram dated May 23, 2016. FINDINGS: Liver: The liver is enlarged and measures 18.7 cm. There is normal echogenicity of the liver. The bile ducts are within normal limits. There is hepatic color flow. The direction of portal flow is hepatopetal. There is a 1.8 cm x 1.7 summary by 2.3 cm echogenic nodule in the right lobe of the liver suggestive of an hemangioma. Gallbladder: Normal distended gallbladder. The gallbladder wall measures 2 mm. There is a negative sonographic Good''s sign. There is no pericholecystic fluid. There are no gallstones. Common Bile Duct (C.B.D.): The common bile duct measures 5 mm. Pancreas: Normal size of the head, body and tail of the pancreas. There is normal echogenicity of the pancreas. There is no demonstrated pancreatic mass or cyst. Right Kidney: Normal size of the right kidney. The right kidney measures 12.2 cm x 6 cm x 4.9 cm. Normal renal cortex. The right cortex measures 1.2 cm. There is no demonstrated renal mass or cyst. There is no right hydronephrosis. US/Abdomen Limited IMPRESSION: Mild hepatomegaly. 1.8 cm x 1.7 cm x 2.3 cm echogenic nodule in the right lobe of the liver suggestive of a small hemangioma. Electronically Signed: Efra Linares MD at 10:09 EDT ,
== END | disposition home or self-care (01) ==
LOC: US 07:13
PROVIDERS: PCP Internal Medicine; Referring Provider Internal Medicine; Visit Provider Internal Medicine
DX: R10.11 Right upper quadrant pain (principal)
CPT/HCPCS: 76705

== ENCOUNTER → 2023-09-19 | Outpatient (CLI) | payer OTHER, SELFPAY ==
--- NOTE | 2023-09-19 06:54 | CT_ITS ---
STUDY: LOW DOSE CT LUNG CANCER SCREENING REASON FOR EXAM: Female, 52 years old. Current Smoker. Patient smokes 1 pack per day for 30 years. RADIATION DOSAGE (If Supplied By Facility): CTDIvol = ( 2.01 ) mGy, DLP = ( 68.21 ) mGycm TECHNIQUE: No contrast was administered. Low dose technique was utilized (average mAS-38 and kVp 120). 1.25 mm axial source images with a slice interval of 1.25-mm were reconstructed in lung windows. 2.5 mm axial source images with a slice interval of 2.5-mm were reconstructed in lung windows. 5.0 mm axial source images with a slice interval of 5.0-mm were reconstructed in soft tissue windows. COMPARISON: None. NODULES: No suspicious nodules are seen. Emphysema: No significant emphysema is seen. Endobronchial lesion: Unremarkable Aorta: Unremarkable CORONARY ARTERIES: Coronary artery calcification is not seen. Heart: Unremarkable Pulmonary artery: Unremarkable Mediastinal nodes: Unremarkable Other chest and abdominal findings: CT/Low Dose CT Lung Screening IMPRESSION: Lung-RADS category 2 - Continue annual screening with LDCT in 12 months. IMPORTANT NOTES FOR USE: ACR Lung-RADS Version 1.1 Assessment Categories Release Date: 2018 Category: Coded 0-4 bases on nodule(s) with highest degree of suspicion. Negative screen is defined as categories 1 and 2; a positive screen is defined as categories 3 and 4. Category 3 and 4A nodules that are unchanged on interval CT should be coded as category 2, and individuals returned to screening in 12 months. Category 4X: Category 3 or 4 nodules with additional imaging findings that increase the suspicion of lung cancer, such as spiculation, GGN that doubles in size in 1 year, enlarged lymph notes, etc. Category Modifiers: S (significant finding unrelated to lung cancer) Electronically Signed: Efra Linares MD at 13:20 EDT ,
== END | disposition home or self-care (01) ==
LOC: CT 06:54
PROVIDERS: PCP Internal Medicine; Referring Provider Internal Medicine; Visit Provider Internal Medicine
DX: Z12.2 Encounter for screening for malignant neoplasm of respiratory organs (principal); Z87.891 Personal history of nicotine dependence
CPT/HCPCS: 71271

== ENCOUNTER → 2023-10-05 | Outpatient (CLI) | payer OTHER, SELFPAY ==
--- NOTE | 2023-10-05 09:51 | NM_ITS ---
CLINICAL: 53-year-old female with history of right upper quadrant abdominal pain. RADIONUCLIDE HEPATOBILIARY SCINTIGRAPHY COMPARISON: Abdominal ultrasound report 09/06/2023 FINDINGS: Following the intravenous administration of 5.6 mCi of 99m Tc Mebrofenin, hepatobiliary images reveal: 1. Relatively prompt and homogeneous radiopharmaceutical concentration is noted by a normal sized liver. No parenchymal defects are identified. 2. Gallbladder activity is identified at 15 minutes post radiopharmaceutical administration. 3. Small intestinal tract is observed at 45 minutes following tracer injection. 4. Washout of the radiopharmaceutical by the hepatic parenchyma appears qualitatively normal. Cholecystokinin (0.02 ug/kg) was administered intravenously over a 30-minute period. The post CCK gallbladder ejection fraction calculated at 20 minutes following Cholecystokinin administration was noted to be 88.0 % (normal greater than 35%). During 30 minutes of post CCK imaging, there is no scintigraphic evidence of reflux of the radiotracer into the common hepatic duct or refilling of the gallbladder. There is subtle scintigraphic evidence of post CCK duodenal gastric reflux. NM/Hepatobilliary Img w/Pharm Int IMPRESSION: 1. A gallbladder ejection fraction calculated to be greater than 35% following the administration of Cholecystokinin makes the probability of functional hepatobiliary disease (gallbladder and/or sphincter of Oddi dyskinesia) and/or organic hepatobiliary disease (chronic acalculous cholecystitis and/or cystic duct syndrome) to be low. (Natasha Baker et al, Journal of Nuclear Medicine 32:1695, 1990). 2. There is scintigraphic evidence of minimal post CCK duodenal-gastric reflux. (Shellie et al, Nucl Med Debora Irina Press pg. 35, 1980). Electronically Signed: Jose E Banda DO at 9:48 EDT ,
== END | disposition home or self-care (01) ==
PROVIDERS: PCP Internal Medicine; Referring Provider Internal Medicine; Visit Provider Internal Medicine
DX: R10.11 Right upper quadrant pain (principal)
CPT/HCPCS: 78227; A9537; J2805

== ENCOUNTER → 2024-01-03 | Outpatient (CLI) | payer OTHER, SELFPAY ==
--- NOTE | 2024-01-03 08:05 | RAD_ITS ---
PROCEDURE: SMALL BOWEL SERIES DATE OF EXAMINATION: January 03, 2024.. INDICATION: Female, 53 years old. Bilateral upper quadrant pain. History of IBS. PHYSICIAN: Efra Linares M.D. FLUOROSCOPY TIME (if supplied): (0:54) minutes/seconds. 49 mGy. 12 images were submitted. TECHNIQUE: Radiographic and fluoroscopic images were taken of the small intestine following the ingestion of barium. COMPARISON: None. FINDINGS: A preliminary supine KUB was obtained. There is an unremarkable bowel gas pattern. Fecal material is present throughout the colon. Phleboliths are present within the pelvis. The lung bases are unremarkable. The osseous structures are normal. The patient orally ingested approximately 12 ounces of thin barium Normal visualized fundus, body, and antrum of the stomach. Normal duodenal bulb, C-loop, and proximal jejunum. Normal visualized mucosal folds of the jejunum and ileum. There are no demonstrated dilatations, strictures, or masses of the small intestine. There is no mass displacement of the loops of small intestine. There is a normal motor pattern with barium reaching the colon within approximately 60 minutes. Spot films under fluoroscopic observation demonstrated a normal terminal ileum and ileocecal valve. RAD/Small Bowel Series Only IMPRESSION: Normal small bowel series. Electronically Signed: Efra Linares MD at 14:11 EDT ,
== END | disposition home or self-care (01) ==
PROVIDERS: PCP Internal Medicine; Referring Provider Internal Medicine Gastroenterology; Visit Provider Internal Medicine Gastroenterology
DX: R10.9 Unspecified abdominal pain (principal)
CPT/HCPCS: 74250

== ENCOUNTER → 2024-09-03 | Outpatient (CLI) | payer OTHER, SELFPAY ==
--- NOTE | 2024-09-03 13:26 | BI_ITS ---
EXAM: SCRN MAMM (CAD)W/SVETLANA BILAT 09/03/2024 CLINICAL HISTORY: F, Age 53 y/o , SCRN MAMM (CAD)W/SVETLANA BILAT BREAST CANCER RISK ASSESSMENT: Has not been calculated. TECHNIQUE: Bilateral screening digital breast tomosynthesis with 2D images. Computer aided detection. COMPARISON: Prior exam(s) dated 12/09/2022. FINDINGS: TISSUE DENSITY: The breast tissue is composed of scattered area of fibroglandular density. Bilateral Breast Mammographic Findings: There are no other dominant masses, areas of architectural distortion, or suspicious calcifications in either breast. BI/SCRN MAMM (CAD)W/SVETLANA BILAT IMPRESSION: Right Breast: BIRADS 1 NEGATIVE. Left Breast: BIRADS 1 NEGATIVE. OVERALL FINAL ASSESSMENT: BIRADS 1 NEGATIVE RECOMMENDATION: Routine annual follow-up in 1 Year A letter with findings and recommendations will be mailed to the patient. Reading Location: [id number]
== END | disposition home or self-care (01) ==
LOC: OPBI 13:25
PROVIDERS: PCP Internal Medicine; Referring Provider Internal Medicine; Visit Provider Internal Medicine
DX: Z12.31 Encounter for screening mammogram for malignant neoplasm of breast (principal)
CPT/HCPCS: 77063; 77067

== ENCOUNTER → 2025-01-26 | Outpatient (CLI) | payer OTHER, SELFPAY ==
--- NOTE | 2025-01-26 16:37 | US_ITS ---
PROCEDURE: PELVIC (NON ) 01/26/2025 REASON FOR EXAM: PELVIC PAIN IN FEMALE 10 month history of left lower quadrant pain. TECHNIQUE: PELVIC (NON ) COMPARISON: None FINDINGS: Measurements: Uterus: The patient is status post hysterectomy. Right Ovary: 2.7 cm x 2.1 cm x 1.6 cm. Left Ovary: Nonvisualized. Uterus: Status post hysterectomy Right ovary: 1.5 cm x 1.5 cm 1 cm follicle. Left ovary: Not visualized Other: No large pelvic mass identified. US/Pelvic (Non ) IMPRESSION: Status post hysterectomy. Small follicle in the right ovary. Reading Location: [id number]
== END | disposition home or self-care (01) ==
PROVIDERS: PCP Internal Medicine; Referring Provider Internal Medicine; Visit Provider Internal Medicine
DX: R10.2 Pelvic and perineal pain (principal)
CPT/HCPCS: 76856

== ENCOUNTER → 2025-01-29 | Outpatient (CLI) | payer OTHER, SELFPAY ==
--- NOTE | 2025-01-29 17:19 | CT_ITS ---
PROCEDURE: LOW DOSE CT LUNG SCREENING 01/29/2025 REASON FOR EXAM: NICOTINE DEPENDENCE Patient has smoked 3/4 pack per day for 36 years. TECHNIQUE: LOW DOSE CT LUNG SCREENING Coronal and Sagittal reconstruction series were provided. One or more dose reduction techniques were used (e.g., Automated exposure control, adjustment of the mA and/or kV according to patient size, use of iterative reconstruction technique). REFERENCE LINK: [employer] Lung-RADS RADIATION DOSE SUMMARY: CTDlvol: 2.01 mGy DLP: 67.46 mGycm COMPARISON: Prior study dated September 19, 2023. FINDINGS: PULMONARY NODULES: (Only nodules >3mm are reported) Nodules described below are on series 1 unless otherwise specified. Pulmonary Nodules: No suspicious pulmonary nodules are seen. Hardware:None Lymph Nodes:None Heart and Vasculature:The heart is not enlarged. Coronary Artery Calcifications: Minimal coronary artery calcification. Lungs and Airways: Mild dependent atelectasis. Pleura:No pleural effusion. Upper Abdomen:Unremarkable Bones:Degenerative changes of the thoracic spine. CT/Low Dose CT Lung Screening IMPRESSION: No suspicious pulmonary nodule seen. Coronary artery calcification (CAC) is is present Lung-RADS Category: 2 BENIGN (BASED ON IMAGING FEATURES OR INDOLENT BEHAVIOR). RECOMMEND 12-MONTH SCREENING LDCT. Other Significant Findings: Reading Location: [facility]
== END | disposition home or self-care (01) ==
LOC: CT 17:16
PROVIDERS: PCP Internal Medicine; Referring Provider Internal Medicine; Visit Provider Internal Medicine
DX: Z12.2 Encounter for screening for malignant neoplasm of respiratory organs (principal); R10.32 Left lower quadrant pain; F17.200 Nicotine dependence, unspecified, uncomplicated
CPT/HCPCS: 71271

== ENCOUNTER → 2025-05-11 | Outpatient (CLI) | payer OTHER, SELFPAY ==
[2025-05-11 15:28] LABS: Cholesterol 183 mg/dL (<=200); Low Density Lipoprotein Calc. 114 mg/dL; Triglycerides 50 mg/dL; Very Low Density Lipoprotein 10 mg/dL (5-40); cholesterol:hdl ratio screen 3.07
== END | disposition home or self-care (01) ==
LOC: CIMLAB 11:56
PROVIDERS: PCP Internal Medicine; Referring Provider Internal Medicine; Visit Provider Internal Medicine
DX: E78.5 Hyperlipidemia, unspecified (principal)
CPT/HCPCS: 36415; 80061

== ENCOUNTER → 2025-05-21 | Outpatient (CLI) | payer OTHER, SELFPAY ==
--- NOTE | 2025-05-21 08:40 | RAD_ITS ---
EXAM: XR Abdomen, 2 Views CLINICAL INDICATION: LLQ PAIN R/O STOOL RETENTION/CONSTIPATION TECHNIQUE: Frontal view of the abdomen/pelvis with upright view of the abdomen. COMPARISON: No relevant prior studies available. FINDINGS: INTRAPERITONEAL SPACE: No free air. GASTROINTESTINAL TRACT: Fecal retention in the colon consistent with constipation. No dilation. BONES/JOINTS: Unremarkable. No acute fracture. RAD/Abdomen Single View IMPRESSION: Fecal retention in the colon consistent with constipation. Reading Location: [facility]
== END | disposition home or self-care (01) ==
LOC: MTRAD 08:40
PROVIDERS: PCP Internal Medicine; Referring Provider Internal Medicine; Visit Provider Internal Medicine
DX: R10.32 Left lower quadrant pain (principal)
CPT/HCPCS: 74018